=== PATIENT | female | born 1960 | race Caucasian/White ===

== ENCOUNTER 2018-08-08 11:25 | Outpatient (CLI) | payer MEDICAID, SELFPAY ==
[2018-08-08 12:32] LABS: Hemoglobin A1C 7.1 % (4.5-6.2)
[2018-08-08 12:39] LABS: COMMENT (LAB VIEW ONLY) 207.99 mg/dL; Microalb ug/mg Crea 25.8 ug/mg Cr
[2018-08-08 13:28] LABS: ALT 75 U/L (12-78); Cholesterol 333 mg/dL (50-200); HDL Cholesterol 47 mg/dL (40-60); LDL CHOLESTEROL 243 mg/dL (<100); Triglyceride 248 mg/dL (30-150)
== END 2018-08-08 11:45 ==
PROVIDERS: PCP Family Medicine; Visit Provider Family Medicine
DX: E11.9 Type 2 diabetes mellitus without complications (principal); I10 Essential (primary) hypertension; E78.5 Hyperlipidemia, unspecified
CPT/HCPCS: 36415; 80061; 83721; 82043; 82570; 83036; 84460

== ENCOUNTER 2018-09-19 01:13 | Outpatient (CLI) | payer MEDICAID, SELFPAY ==
--- NOTE | 2018-09-19 08:30 | DI.MAMMO_ITS ---
SYMPTOMS/DIAGNOSIS: SCREENING, Z12.31 MAMMOGRAM: Mammograms were interpreted according to the usual protocol including computer analysis with CAD system, tomosynthesis and C view imaging. The breasts are of moderate density with fairly symmetrical distribution of fibroglandular tissue. No dominant mass or clumped microcalcification is identified in either breast. Current examination is compared with the previous examinations including October 2016 and there has been no gross interval change in appearance in comparison with the previous studies. CONCLUSION: No specific evidence of malignancy at this time. Routine screening examinations are suggested at yearly intervals in this age group according to the ACS/ACR guidelines. Category 1, breast density category B. MQSA ASSESSMENT OF FINDINGS: Negative. Category 1. Patient will receive a letter notifying them of these results. BI-RADS category B. There are scattered areas of fibroglandular density.
== END 2018-09-19 01:33 ==
PROVIDERS: PCP Family Medicine; Visit Provider Obstetrics & Gynecology Gynecology
DX: Z12.31 Encounter for screening mammogram for malignant neoplasm of breast (principal)
CPT/HCPCS: 77063; 77067

== ENCOUNTER 2018-09-19 11:10 | Outpatient (REF) | payer MEDICAID, SELFPAY ==
--- NOTE | 2018-09-19 09:40 | ENDOMET_PTH ---
PATIENT: Marcia Nicholas LOC: [facility] U#:[id number] AGE/SX: 58/F ROOM: RE09/19/[address]: Dilma Hanson : 1960 BED: DIS: 09/19/2018 SPEC #: [id number] RECD: 09/19/18 12:48 STATUS: ORLIN REQ #: [id number] MANSOOR: 09/19/18 09:[address]: Dilma Hanson DEPT: Surgical Specimen RECD BY: Rosetta Garza ENTERED: 09/19/18 12:48 SP TYPE: Endomet OTHR DR: Perry Burrell MD Tissues: 1 - ENDOMETRIUM BX/CURRETTE Procedures: GROSS AND MICRO LEVEL 4 Comments: [id number]
== END 2018-09-19 11:30 ==
LOC: LBN 11:10
PROVIDERS: PCP Family Medicine; Visit Provider Obstetrics & Gynecology Gynecology
DX: N85.00 Endometrial hyperplasia, unspecified (principal); N85.8 Other specified noninflammatory disorders of uterus; Z97.5 Presence of (intrauterine) contraceptive device
CPT/HCPCS: 88305

== ENCOUNTER 2018-11-07 10:39 | Outpatient (CLI) | payer MEDICAID, SELFPAY ==
[2018-11-07 11:06] LABS: HGB 13.9 g/dL (12.0-15.5); Mean Corp. HGB Concentration 33.9 g/dL (32.0-36.0); Mean Corpuscular Hemoglobin 32.5 pg (27.0-33.0); Mean Corpuscular Volume 95.8 fL (80-95); Mean Platelet Volume 10.2 fL (8.0-11.0); Platelet Count 275 x1000/uL (130-400); RBC 4.28 m/cumm (4.00-5.20); RBC Distribution Width 12.9 % (11.7-14.6); White Blood Cell Count 6.49 k/cumm (4.4-10.8)
[2018-11-07 13:13] LABS: ALT 56 U/L (12-78); AST 23 U/L (15-37); Alkaline Phosphatase 81 U/L (46-116); Anion Gap 11.8 mmol/L (3-11); BUN 13 mg/dL (7-18); Bilirubin, Total 0.6 mg/dL (0.2-1.0); CO2 27.2 mmol/L (21.0-32.0); CREATININE 0.82 mg/dL (0.55-1.02); Calcium 10.1 mg/dL (8.5-10.1); Chloride 102 mmol/L (98-107); Cholesterol 243 mg/dL (50-200); Glucose 138 mg/dL (70-100); HDL Cholesterol 51 mg/dL (40-60); LDL CHOLESTEROL 160 mg/dL (<100); Potassium 4.4 mmol/L (3.5-5.1); Sodium 141 mmol/L (136-145); Total Protein 7.6 g/dL (6.4-8.2); Triglyceride 171 mg/dL (30-150)
[2018-11-07 14:15] LABS: Hemoglobin A1C 7.4 % (4.5-6.2)
== END 2018-11-07 10:59 ==
PROVIDERS: PCP Family Medicine; Visit Provider Family Medicine
DX: E11.69 Type 2 diabetes mellitus with other specified complication (principal); E78.5 Hyperlipidemia, unspecified; E66.9 Obesity, unspecified
CPT/HCPCS: 36415; 80053; 80061; 83721; 85027; 83036

== ENCOUNTER 2019-03-13 10:57 | Outpatient (CLI) | payer MEDICAID, SELFPAY ==
[2019-03-13 12:00] LABS: Hemoglobin A1C 7.2 % (4.5-6.2)
[2019-03-13 12:46] LABS: ALT 46 U/L (12-78); AST 17 U/L (15-37); Alkaline Phosphatase 89 U/L (46-116); Anion Gap 12.2 mmol/L (3-11); BUN 14 mg/dL (7-18); Bilirubin, Total 0.6 mg/dL (0.2-1.0); CO2 26.8 mmol/L (21.0-32.0); CREATININE 0.78 mg/dL (0.55-1.02); Calcium 9.6 mg/dL (8.5-10.1); Chloride 102 mmol/L (98-107); Cholesterol 239 mg/dL (50-200); Glucose 126 mg/dL (70-100); HDL Cholesterol 49 mg/dL (40-60); LDL CHOLESTEROL 157 mg/dL (<100); Potassium 4.4 mmol/L (3.5-5.1); Sodium 141 mmol/L (136-145); Total Protein 7.6 g/dL (6.4-8.2); Triglyceride 155 mg/dL (30-150)
== END 2019-03-13 11:17 ==
PROVIDERS: PCP Family Medicine; Visit Provider Family Medicine
DX: E11.9 Type 2 diabetes mellitus without complications (principal); E78.5 Hyperlipidemia, unspecified; Z00.00 Encounter for general adult medical examination without abnormal findings
CPT/HCPCS: 36415; 80053; 80061; 83721; 83036

== ENCOUNTER 2019-04-25 00:35 | Outpatient (CLI) | payer MEDICAID, SELFPAY ==
--- NOTE | 2019-04-25 07:30 | MERGE_ITS ---
*[facility]* *[facility]* [address] [place] [address] Date of study: 04/25/2019 Transthoracic Echocardiography M-mode, complete 2D, complete spectral Doppler, and color Doppler *STUDY CONCLUSIONS* Summary: 1. Left ventricle: The cavity size was normal. There was mild to moderate concentric hypertrophy. Systolic function was normal. The estimated ejection fraction was 60-65%. Wall motion was normal; there were no regional wall motion abnormalities. 2. Aortic valve: Sclerosis without stenosis. 3. Left atrium: The atrium was mildly dilated. 4. Right ventricle: The cavity size was normal. Wall thickness was normal. Systolic function was normal. 5. Pulmonic valve: Peak gradient (S): 4.7mm Hg. *PATIENT PRESENTATION* Height: 165.1cm ((65in) ) S/D Pressure: 117 / 71 Weight: 108.9kg ((239.5lb) ) BSA: 2.29m^2 Test start time: 07:40 AM. Test stop time: 08:40 AM. PERFORMING Unknown PERFORMING [facility] [employer]PER[employer] ASSISTANT RT Mio (Steve)(CT), CS ORDERING Perry Burrell REFERRING Perry Burrell *PROCEDURE DATA* Procedure information: The patient was identified by two identifiers. This study was interpreted by [facility]. Pertinent images and digital data are archived for permanent storage and are available for subsequent review. Comparison was made to the study of 06/06/2012. Study status: Routine. Transthoracic echocardiography. M-mode, complete 2D, complete spectral Doppler, and color Doppler. A Transthoracic Echocardiogram was performed. Scanning was performed from the parasternal, apical, subcostal, and suprasternal notch acoustic windows. Images were obtained using an [id number] cardiac ultrasound machine. Image quality was adequate. Study completion: The patient tolerated the procedure well. There were no complications. History: PMH: Pedal edema, DM, HTN, hyperlipidemia, r60.0, E11.9, e78.5. *CARDIAC ANATOMY* Left ventricle: The cavity size was normal. There was mild to moderate concentric hypertrophy. Systolic function was normal. The estimated ejection fraction was 60-65%. Wall motion was normal; there were no regional wall motion abnormalities. Diastolic parameters were normal. Aortic valve: Trileaflet. Sclerosis without stenosis. Mobility was not restricted. Doppler: Transvalvular velocity was within the normal range. There was no stenosis. There was no significant regurgitation. VTI ratio of LVOT to aortic valve: 0.61. Valve area (VTI): 1.9cm^2. Indexed valve area (VTI): 0.8cm^2/m^2. Peak velocity ratio of LVOT to aortic valve: 0.59. Valve area (Vmax): 1.9cm^2. Indexed valve area (Vmax): 0.8cm^2/m^2. Mean velocity ratio of LVOT to aortic valve: 0.62. Valve area (Vmean): 2cm^2. Indexed valve area (Vmean): 0.9cm^2/m^2. Mean gradient (S): 9.5mm Hg. Peak gradient (S): 16.5mm Hg. Aorta: Aortic root: The aortic root was normal in size. Ascending aorta: The ascending aorta was normal in size. Mitral valve: Mildly thickened leaflets. Mobility was not restricted. Doppler: Transvalvular velocity was within the normal range. There was no evidence for stenosis. There was trivial regurgitation. Valve area by pressure half-time: 4.5cm^2. Indexed valve area by pressure half-time: 2cm^2/m^2. Peak gradient (D): 3.4mm Hg. Left atrium: The atrium was mildly dilated. Right ventricle: The cavity size was normal. Wall thickness was normal. Systolic function was normal. Pulmonic valve: The pulmonary valve appears to be grossly normal. Doppler: Transvalvular velocity was within the normal range. There was no evidence for stenosis. There was no significant regurgitation. Peak gradient (S): 4.7mm Hg. Tricuspid valve: Structurally normal valve. Doppler: Transvalvular velocity was within the normal range. There was no evidence for stenosis. There was no significant regurgitation. Pulmonary artery: Systolic pressure could not be accurately estimated. Right atrium: The atrium was normal in size. Pericardium: There was no pericardial effusion. Systemic veins: Inferior vena cava: Well visualized. The vessel was patent and normal in size. The respirophasic diameter changes were in the normal range (greater than or equal to 50%). Baseline ECG: Normal sinus rhythm. Measurements Left ventricle Value Reference LV ID, ED, PLAX 5.1 cm 3.5 - 6.0 LV ID, ES, PLAX 3.1 cm 2.1 - 4.0 LV PW thickness, ED, PLAX 1.2 cm LV end-diastolic volume, 1-p A2C 76 ml LV ejection fraction, 1-p A2C 76 % LV end-diastolic volume, 1-p A4C 76 ml LV ejection fraction, 1-p A4C 61 % LV e', lateral 0.097 m/sec LV E/e', lateral 10 LV e', medial 0.079 m/sec LV E/e', medial 12 LV e', average 0.088 m/sec LV E/e', average 11 Ventricular septum Value Reference IVS thickness, ED, PLAX 1.3 cm LVOT Value Reference LVOT ID, A-P 2.0 cm LVOT area 3.2 cm^2 LVOT peak velocity, S 1.2 m/sec LVOT mean velocity, S 0.91 m/sec LVOT VTI, S 27.4 cm LVOT peak gradient, S 5.8 mm Hg LVOT mean gradient, S 3.6 mm Hg Stroke volume (SV), LVOT DP 87 ml Stroke index (SV/bsa), LVOT DP 38 ml/m^2 Aortic valve Value Reference Aortic valve peak velocity, S 2 m/sec Aortic valve mean velocity, S 1.47 m/sec Aortic valve VTI, S 45.0 cm Aortic mean gradient, S 9.5 mm Hg Aortic peak gradient, S 16.5 mm Hg VTI ratio, LVOT/AV 0.61 Aortic valve area, VTI 1.9 cm^2 Velocity ratio, peak, LVOT/AV 0.59 Aortic valve area, peak velocity 1.9 cm^2 Velocity ratio, mean, LVOT/AV 0.62 Aortic valve area, mean velocity 2 cm^2 Aortic valve area/bsa, mean velocity 0.9 cm^2/m^2 Aorta Value Reference Aortic root ID, ED 3.1 cm Ascending aorta ID, A-P, S 3.4 cm Left atrium Value Reference LA ID, A-P, ES 4.6 cm LA ID/bsa, A-P 2.0 cm/m^2 <=2.2 LA area, ES, A4C (H) 24.1 cm^2 8.8 - 23.4 LA area, ES, A2C 20 cm^2 LA volume/bsa, ES, 1-p A4C 41 ml/m^2 LA volume, ES, 2-p 68 ml LA volume/bsa, ES, 2-p 30 ml/m^2 LA/aortic root ratio 1.48 Mitral valve Value Reference Mitral E-wave peak velocity 0.93 m/sec Mitral A-wave peak velocity 1.1 m/sec Mitral deceleration time 167 ms 150 - 230 Mitral pressure half-time 49 ms Mitral peak gradient, D 3.4 mm Hg Mitral E/A ratio, peak 0.85 Mitral valve area, PHT, DP 4.5 cm^2 Pulmonary veins Value Reference Pulmonary vein peak velocity, S 0.59 m/sec Pulmonary vein peak velocity, D 0.48 m/sec Pulmonary vein velocity ratio, peak, 1.22 S/D Pulmonary vein A-wave reversal peak 0.36 m/sec velocity Pulmonary vein A-wave reversal 108 ms duration Tricuspid valve Value Reference Tricuspid regurg peak velocity 2.2 m/sec Tricuspid peak RV-RA gradient 20.2 mm Hg Right atrium Value Reference RA area, ES, A4C (H) 19.8 cm^2 8.3 - 19.5 Pulmonic valve Value Reference Pulmonic peak gradient, S 4.7 mm Hg Legend: (L) and (H) joni values outside specified reference range. I have personally reviewed the images and have reviewed and edited the reported findings. Electronically signed by Justin Meléndez 04/25/2019 09:12
== END 2019-04-25 00:55 ==
PROVIDERS: PCP Family Medicine; Visit Provider Family Medicine
DX: E11.9 Type 2 diabetes mellitus without complications (principal); E78.5 Hyperlipidemia, unspecified; R60.0 Localized edema; I10 Essential (primary) hypertension; I35.8 Other nonrheumatic aortic valve disorders
CPT/HCPCS: 93306

== ENCOUNTER 2019-05-22 13:35 | Outpatient (CLI) | payer MEDICAID, SELFPAY ==
[2019-05-22 14:58] LABS: Anion Gap 11.2 mmol/L (3-11); BUN 11 mg/dL (7-18); CO2 26.8 mmol/L (21.0-32.0); CREATININE 0.67 mg/dL (0.55-1.02); Calcium 9.5 mg/dL (8.5-10.1); Chloride 103 mmol/L (98-107); Glucose 124 mg/dL (70-100); Potassium 3.7 mmol/L (3.5-5.1); Sodium 141 mmol/L (136-145)
== END 2019-05-22 13:55 ==
PROVIDERS: PCP Family Medicine; Visit Provider Family Medicine
DX: E11.9 Type 2 diabetes mellitus without complications (principal)
CPT/HCPCS: 36415; 80048

== ENCOUNTER 2019-11-01 12:59 | Outpatient (CLI) | payer MEDICAID, SELFPAY ==
[2019-11-01 13:59] LABS: Hemoglobin A1C 6.8 % (3.8-5.6)
[2019-11-01 14:25] LABS: ALT 53 U/L (14-59); AST 17 U/L (15-37); Alkaline Phosphatase 86 U/L (46-116); Anion Gap 12.2 mmol/L (3-11); BUN 11 mg/dL (7-18); Bilirubin, Total 0.5 mg/dL (0.2-1.0); CO2 28.8 mmol/L (21.0-32.0); CREATININE 0.76 mg/dL (0.55-1.02); Calcium 9.5 mg/dL (8.5-10.1); Calculated LDL 148 mg/dL; Chloride 102 mmol/L (98-107); Cholesterol 225 mg/dL (<200); Glucose 117 mg/dL (74-106); HDL Cholesterol 59 mg/dL (40-60); Potassium 4.3 mmol/L (3.5-5.1); Sodium 143 mmol/L (136-145); Total Protein 7.4 g/dL (6.4-8.2); Triglyceride 91 mg/dL (<150)
== END 2019-11-01 13:19 ==
PROVIDERS: PCP Family Medicine; Visit Provider Family Medicine
DX: E78.5 Hyperlipidemia, unspecified (principal); E11.9 Type 2 diabetes mellitus without complications
CPT/HCPCS: 36415; 80053; 80061; 83036

== ENCOUNTER 2020-04-08 03:42 | Outpatient (CLI) | payer MEDICAID, SELFPAY ==
[2020-04-08 10:23] LABS: Hemoglobin A1C 6.6 % (3.8-5.6)
[2020-04-08 10:39] LABS: COMMENT (LAB VIEW ONLY) 20.03 mg/dL
[2020-04-08 10:47] LABS: Microalb ug/mg Crea 330.5 ug/mg Cr
[2020-04-08 11:29] LABS: Calculated LDL 148 mg/dL (<100); Cholesterol 233 mg/dL (<200); HDL Cholesterol 59 mg/dL (40-60); Triglyceride 130 mg/dL (<150); Vitamin B12 282 pg/mL (193-986)
== END 2020-04-08 04:02 ==
PROVIDERS: PCP Family Medicine; Visit Provider Family Medicine
DX: E11.9 Type 2 diabetes mellitus without complications (principal); E78.5 Hyperlipidemia, unspecified
CPT/HCPCS: 36415; 80061; 82043; 82570; 82607; 83036

== ENCOUNTER 2020-05-13 03:47 | Outpatient (CLI) | payer MEDICAID, SELFPAY ==
[2020-05-13 10:47] LABS: Anion Gap 11.1 mmol/L (3-11); BUN 13 mg/dL (7-18); CO2 27.9 mmol/L (21.0-32.0); CREATININE 0.88 mg/dL (0.55-1.02); Calcium 9.6 mg/dL (8.5-10.1); Chloride 102 mmol/L (98-107); Glucose 141 mg/dL (74-106); Potassium 4.2 mmol/L (3.5-5.1); Sodium 141 mmol/L (136-145)
== END 2020-05-13 04:07 ==
PROVIDERS: PCP Family Medicine; Visit Provider Family Medicine
DX: E11.9 Type 2 diabetes mellitus without complications (principal)
CPT/HCPCS: 36415; 80048

== ENCOUNTER 2020-05-20 09:38 | Outpatient (REF) | payer MEDICAID, SELFPAY ==
--- NOTE | 2020-05-20 09:00 | ENDOMET_PTH ---
PATIENT: Marcia Nicholas LOC: N U#:[id number] AGE/SX: 60/F ROOM: RE05/20/[address]: Dilma Hanson : 1960 BED: DIS: 05/20/2020 SPEC #: [id number] RECD: 05/20/20 12:14 STATUS: ORLIN REQ #: [id number] MANSOOR: 05/20/20 09:[address]: Dilma Hanson DEPT: Surgical Specimen RECD BY: Riaz Garcia ENTERED: 05/20/20 12:14 SP TYPE: Endomet OTHR DR: Perry Burrell MD Tissues: 1 - ENDOMETRIUM BX/CURRETTE Procedures: GROSS AND MICRO LEVEL 4 Comments: [id number]
== END 2020-05-20 09:58 ==
LOC: LBN 09:38
PROVIDERS: PCP Family Medicine; Visit Provider Obstetrics & Gynecology Gynecology
DX: N85.00 Endometrial hyperplasia, unspecified (principal); Z97.5 Presence of (intrauterine) contraceptive device
CPT/HCPCS: 88305

== ENCOUNTER 2020-07-08 04:29 | Outpatient (CLI) | payer MEDICAID, SELFPAY ==
[2020-07-08 10:11] LABS: Hemoglobin A1C 6.4 % (<5.7)
[2020-07-08 11:02] LABS: ALT 46 U/L (14-59); AST 18 U/L (15-37); Alkaline Phosphatase 80 U/L (46-116); Anion Gap 10.7 mmol/L (3-11); BUN 14 mg/dL (7-18); Bilirubin, Total 0.5 mg/dL (0.2-1.0); CO2 28.3 mmol/L (21.0-32.0); CREATININE 0.78 mg/dL (0.55-1.02); Calcium 9.7 mg/dL (8.5-10.1); Calculated LDL 156 mg/dL (<100); Chloride 100 mmol/L (98-107); Cholesterol 230 mg/dL (<200); Glucose 130 mg/dL (74-106); HDL Cholesterol 55 mg/dL (40-60); Magnesium 1.7 mg/dL (1.8-2.4); Potassium 4.1 mmol/L (3.5-5.1); Sodium 139 mmol/L (136-145); Total Protein 7.3 g/dL (6.4-8.2); Triglyceride 97 mg/dL (<150)
== END 2020-07-08 04:49 ==
PROVIDERS: PCP Family Medicine; Visit Provider Family Medicine
DX: E11.9 Type 2 diabetes mellitus without complications (principal); I10 Essential (primary) hypertension; E78.5 Hyperlipidemia, unspecified
CPT/HCPCS: 36415; 80053; 80061; 83036; 83735

== ENCOUNTER 2021-01-02 02:08 | Outpatient (CLI) | payer MEDICAID, SELFPAY ==
[2021-01-02 12:49] LABS: Calculated LDL 146 mg/dL (<100); Cholesterol 231 mg/dL (<200); HDL Cholesterol 59 mg/dL (40-60); Triglyceride 131 mg/dL (<150)
== END 2021-01-02 02:09 | disposition home or self-care (01) ==
LOC: LOS 02:08
PROVIDERS: PCP Family Medicine; Visit Provider Family Medicine
DX: E11.9 Type 2 diabetes mellitus without complications (principal); E78.5 Hyperlipidemia, unspecified
CPT/HCPCS: 36415; 80061; 83036

== ENCOUNTER 2021-01-21 01:31 | Outpatient (CLI) | payer MEDICAID, SELFPAY ==
--- NOTE | 2021-01-21 11:48 | DI.MAMMO_ITS ---
EXAM: MG MAMMO SCREENING CLINICAL HISTORY: screening. TECHNIQUE: Bilateral full field digital CC and MLO mammographic images were obtained with 3D tomosyn thesis and utilizing computer aided detection (CAD). COMPARISON: Prior mammograms dating back to 2010, the most recent being August 2018. FINDINGS: No new significant radiograph findings in left breast. Additional benign-appearing microcalcificatio n left breast is noted. The opposite-right breast there is group microcalcifications located laterally somewhat increased fro m previous. Spot Mag views recommended. No new spiculated masses. There is no significant architectural distortion nor skin thickening-retraction. IMPRESSION: No radiographic evidence of malignancy in left breast. Right breast microcalcification group located laterally. Mag views recommended including Mag CC view and Mag straight lateral view. BI-RADS Category 0 - Assessment Incomplete: Need additional imaging evaluation Breast Density - Category B - Scattered areas of fibroglandular density Breast density Category C or D implies that the patient has dense breast tissue. Dense breast tissue can make it harder to find cancer on a mammogram. Dense breast tissue is also associated with an incr eased risk of breast cancer. This information about the result of the mammogram report was provided to the patient to raise their awareness. Use this report when you speak with the patient about their risks for breast cancer, which includes their family history. At that time, you may recommend additional screening tests (Ultrasoun d or MRI) as these tests may add significant information. A negative radiographic report should not delay biopsy if a dominant or clinically suspicious mass is present. Up to ten percent of cancers are not identified on mammography. A negative report may reinforce clinical impression. Adenosis and dense breasts may obscure an underlying neoplasm. False positive reports average 6 to 10%. Patient will receive a letter notifying them of these results.
== END 2021-01-21 01:51 ==
PROVIDERS: PCP Family Medicine; Visit Provider Obstetrics & Gynecology Gynecology
DX: Z12.31 Encounter for screening mammogram for malignant neoplasm of breast (principal); R92.8 Other abnormal and inconclusive findings on diagnostic imaging of breast
CPT/HCPCS: 77063; 77067

== ENCOUNTER 2021-01-28 01:25 | Outpatient (CLI) | payer MEDICAID, SELFPAY ==
--- NOTE | 2021-01-28 11:00 | DI.MAMMO_ITS ---
EXAM: MG MAMMO SCREEN CALL BACK UNI CLINICAL HISTORY: F/U MAMMO, RT BREAST MICROCALCIFICATIONS. TECHNIQUE: 2D spot compression views of the microcalcifications posteriorly in the right breast perf ormed. COMPARISON: Prior mammograms dating back to 2010, the most recent being 01/21/2021. FINDINGS: Microcalcifications exhibit mild pleomorphism. Therefore suspicious. No obvious associated mass. R ecommend stereotactic biopsy IMPRESSION: Suspicious microcalcifications posteriorly in the right breast. Stereotactic biopsy is recommended. Findings and recommendations were discussed by myself with the patient today. Report and recommendations also called by myself to [facility] following this mammog juan today. BI-RADS Category 4 - Suspicious Abnormality: Biopsy should be considered Breast Density - Category B - Scattered areas of fibroglandular density Breast density Category C or D implies that the patient has dense breast tissue. Dense breast tissue can make it harder to find cancer on a mammogram. Dense breast tissue is also associated with an incr eased risk of breast cancer. This information about the result of the mammogram report was provided to the patient to raise their awareness. Use this report when you speak with the patient about their risks for breast cancer, which includes their family history. At that time, you may recommend additional screening tests (Ultrasoun d or MRI) as these tests may add significant information. A negative radiographic report should not delay biopsy if a dominant or clinically suspicious mass is present. Up to ten percent of cancers are not identified on mammography. A negative report may reinforce clinical impression. Adenosis and dense breasts may obscure an underlying neoplasm. False positive reports average 6 to 10%. Patient will receive a letter notifying them of these results.
== END 2021-01-28 01:45 ==
PROVIDERS: PCP Family Medicine; Visit Provider Obstetrics & Gynecology Gynecology
DX: Z12.31 Encounter for screening mammogram for malignant neoplasm of breast (principal); R92.8 Other abnormal and inconclusive findings on diagnostic imaging of breast; R92.0 Mammographic microcalcification found on diagnostic imaging of breast
CPT/HCPCS: 77063; 77067

== ENCOUNTER 2021-04-15 19:30 | Emergency (ER) | payer MEDICAID, SELFPAY ==
[2021-04-15 19:36] VITALS: BP 178/78; PULSE 97; RESP 16; TEMP 36.8; O2SAT 99
[2021-04-15 20:08] LABS: Abs Immature Grans 0.01 10^3/uL (0.0-0.06); Absolute Basophil Count 0.03 10^3/uL (0.0-0.2); Absolute Eosinophil Count 0.13 10^3/uL (0.0-0.7); Absolute Lymphocyte Count 2.56 10^3/uL (1.2-3.4); Absolute Monocyte Count 0.72 10^3/uL (0.1-0.8); Absolute Neutrophil Count 3.76 10^3/uL (1.2-6.7); Basophils % 0.4; Eosinophils % 1.8; HCT 37.5 % (36.0-46.0); HGB 12.5 g/dL (11.2-15.7); Immature Grans % 0.1; Lymphocytes % 35.5; MCHC 33.3 % (32.0-36.0); MCV 95.9 fL (80-95); MPV 9.8 fL (8.0-11.0); Neutrophils % 52.2; Nucleated RBC 0 %; Platelet Count 305 10^3/uL (130-400); RBC 3.91 10^6/uL (3.93-5.22); RDW 13.6 % (11.7-14.6); RDW-SD 47.8 fL; WBC 7.21 10^3/uL (4.4-10.8)
--- NOTE | 2021-04-15 20:10 | W.ED.GENAD ---
Discharge Plan Disposition Patient Disposition: HOME Condition: Improving Discharge Details Clinical Impression: Abnormal uterine bleeding Primary Care Provider: Christopher Mcclain ED Provider: oLri Ha Home Meds and New Rx's Prescriptions: Continued (DME) lancets [FreeStyle Lancets] 28 gauge misc See Dose Instructions .ROUTE .MEDSUPPLY Qty: 100 RF: 11 valsartan 160 mg tablet 160 mg PO DAILY Qty: 90 RF: 3 atorvastatin 80 mg tablet 80 mg PO QHS Qty: 90 RF: 3 metoprolol succinate 100 mg tablet extended release 24 hr 100 mg PO DAILY Qty: 90 RF: 4 magnesium 250 mg tablet 250 mg PO DAILY Qty: 90 RF: 3 cholecalciferol (vitamin D3) [Vitamin D3] 1,000 unit capsule 4,000 unit PO DAILY RF: 0 furosemide 20 mg tablet 20 mg PO DAILY Qty: 90 RF: 3 Januvia 100 mg tablet 100 mg PO DAILY Qty: 90 RF: 3 metformin 500 mg tablet 1,000 mg PO BID Qty: 360 RF: 3 (DME) blood-glucose meter [FreeStyle Lite Meter] Kit See Dose Instructions .ROUTE .MEDSUPPLY Qty: 1 RF: 0 amlodipine 5 mg tablet 7.5 mg PO DAILY Qty: 135 RF: 4 (DME) FreeStyle Test Strip See Dose Instructions .ROUTE .MEDSUPPLY Qty: 100 RF: 11 medroxyprogesterone [Provera] 5 mg tablet 5 mg PO DAILY Qty: 30 RF: 2 milk thistle 175 mg Capsule 175 mg PO DAILY RF: 0 Discharge Instructions Instructions: Abnormal (Dysfunctional) Uterine Bleeding (ED) Additional Instructions: Take the progesterone prescription sent to your pharmacy by Dr. Hanson as directed. Call the gynecology office tomorrow to schedule a follow-up appointment as recommended by Dr. Hanson. Return immediately to the emergency department if you develop any worsening or new concerning symptoms such as difficulty breathing, chest pain or dizziness. Referrals: Dilma Hanson MD [ [facility] STAFF PHYSICIAN] - Discharge Data Discharge Date/Time-TO BE ENTERED AT DEPARTURE: 04/15/21 21:55 Discharge Physician: Lori Ha Medical Decision Making 61-year-old postmenopausal female with a history of dysfunctional uterine bleeding and uterine fibroids for several years presents for worsening vaginal bleeding today at home. She describes large amounts of bleeding in the toilet and on pads today. She denies any fever, chest pain, shortness of breath, dizziness or abdominal pain. She appears comfortable and nontoxic. Her vitals are within normal limits. Abdomen is soft and nontender. Speculum exam noted large amount of maroon blood with 3-4 large maroon clots. Normal bimanual exam. Normal hemoglobin and hematocrit. Normal coagulation studies. Case discussed with Dr. Hanson who evaluated patient at bedside. Patient is cleared for discharge to home. A prescription for progesterone will be sent electronically to her pharmacy per Dr. Hanson. Plan is for patient to follow-up with gynecology outpatient for likely plan for D&C. Patient was comfortable with plan for home. Usual and customary return precautions given prior to discharge. Medical Records Medical records reviewed: Yes I reviewed the patient's medical records. Lab Data Lab results reviewed: Yes I reviewed the patient's lab results. Labs: Laboratory Tests Range/Units 04/15/21 04/15/21 04/15/21 19:46 19:46 20:00 WBC (4.4-10.8) 10^3/uL 7.21 RBC (3.93-5.22) 10^6/uL 3.91 L Hgb (11.2-15.7) g/dL 12.5 Hct (36.0-46.0) % 37.5 MCV (80-95) fL 95.9 H MCH (27.0-33.0) pg 32.0 MCHC (32.0-36.0) % 33.3 RDW (11.7-14.6) % 13.6 Plt Count (130-400) 10^3/uL 305 MPV (8.0-11.0) fL 9.8 Immature Gran % 0.1 Neutrophils % 52.2 Lymphocytes % 35.5 Monocytes % 10.0 Eosinophils % 1.8 Basophils % 0.4 Nucleated RBC % % 0 Absolute Neutrophils (1.2-6.7) 10^3/uL 3.76 Absolute Lymphocytes (1.2-3.4) 10^3/uL 2.56 Absolute Monocytes (0.1-0.8) 10^3/uL 0.72 Absolute Eosinophils (0.0-0.7) 10^3/uL 0.13 Absolute Basophils (0.0-0.2) 10^3/uL 0.03 PT (9.3-11.0) sec 10.3 INR (0.9-1.1) 1.0 APTT (21.0-27.5) sec 22.3 Sodium (136-145) mmol/L 143 Potassium (3.5-5.1) mmol/L 3.4 L Chloride (98-107) mmol/L 103 Carbon Dioxide (21.0-32.0) mmol/L 25.9 Anion Gap (3-11) mmol/L 14.1 H BUN (7-18) mg/dL 10 Creatinine (0.55-1.02) mg/dL 0.8 Estimated GFR/1.73 m2 (mL/min/1.73m2) >= 60.00 Glucose (74-106) mg/dL 117 H Calcium (8.5-10.1) mg/dL 9.6 Total Bilirubin (0.2-1.0) mg/dL 0.4 AST (15-37) U/L 16 ALT (14-59) U/L 41 Alkaline Phosphatase (46-116) U/L 90 Total Protein (6.4-8.2) g/dL 8.2 Albumin (3.4-5.0) g/dL 4.2 HPI General Mode of arrival: ambulatory. Date/Time Provider Initiated Documentation: 04/15/21 19:41. Limitations to Documentation: no limitations. Information obtained by: patient. HPI Narrative: Patient is a 61-year-old postmenopausal female with a history of hypertension, hyperlipidemia, diabetes, uterine fibroids and dysfunctional uterine bleeding for the past several years that has been followed by Dr. Hanson with plans for a D&C at some point but she states this was placed on hold due to Covid and other medical problems she was dealing with who presents for worsening vaginal bleeding today. Patient states she felt a sudden gush and blood clot and rushed to the toilet and had a large amount of vaginal bleeding. She states she stayed on the toilet for some time and continued to note a large amount of bleeding. She states she then noted a large amount of bleeding on several pads. She denies any fever, chest pain, shortness of breath, dizziness, abdominal pain, nausea, vomiting or urinary symptoms. Related Data Home Medications Medication Instructions Recorded Confirmed lancets 28 gauge #100 each 12/11/18 04/08/21 cholecalciferol (vitamin D3) 25 4,000 unit PO DAILY cap 06/05/19 04/15/21 mcg (1,000 unit) capsule atorvastatin 80 mg tablet 80 mg PO QHS #90 tab 04/22/20 04/15/21 furosemide 20 mg tablet 20 mg PO DAILY #90 tab 06/10/20 04/15/21 valsartan 160 mg tablet 160 mg PO DAILY #90 tab 06/25/20 04/15/21 magnesium 250 mg tablet 250 mg PO DAILY #90 tab 08/05/20 04/15/21 sitagliptin 100 mg tablet 100 mg PO DAILY #90 tab 09/07/20 04/15/21 metformin 500 mg tablet 1,000 mg PO BID #360 tab 09/17/20 04/15/21 amlodipine 5 mg tablet 7.5 mg PO DAILY #135 tab-cap 01/09/21 04/15/21 blood-glucose meter #1 each 01/09/21 04/08/21 blood sugar diagnostic #100 each 01/20/21 04/08/21 metoprolol succinate 100 mg 100 mg PO DAILY #90 tab 04/08/21 04/15/21 tablet,extended release 24 hr medroxyprogesterone 5 mg tablet 5 mg PO DAILY #30 tab 04/15/21 milk thistle 175 mg PO DAILY 04/15/21 04/15/21 Previous Rx's Medication Instructions Recorded lancets 28 gauge #100 each 12/11/18 atorvastatin 80 mg tablet 80 mg PO QHS #90 tab 04/22/20 furosemide 20 mg tablet 20 mg PO DAILY #90 tab 06/10/20 valsartan 160 mg tablet 160 mg PO DAILY #90 tab 06/25/20 magnesium 250 mg tablet 250 mg PO DAILY #90 tab 08/05/20 sitagliptin 100 mg tablet 100 mg PO DAILY #90 tab 09/07/20 metformin 500 mg tablet 1,000 mg PO BID #360 tab 09/17/20 amlodipine 5 mg tablet 7.5 mg PO DAILY #135 tab-cap 01/09/21 blood-glucose meter #1 each 01/09/21 blood sugar diagnostic #100 each 01/20/21 metoprolol succinate 100 mg 100 mg PO DAILY #90 tab 04/08/21 tablet,extended release 24 hr medroxyprogesterone 5 mg tablet 5 mg PO DAILY #30 tab 04/15/21 Allergies Allergy/AdvReac Type Severity Reaction Status Date / Time clindamycin AdvReac Severe GI UPSET Verified 04/15/21 19:42 hydrochlorothiazide AdvReac Intermediate MUSCLE Verified 04/15/21 19:42 ACHES, FATIGUE lisinopril AdvReac Intermediate UNABLE TO Verified 04/15/21 19:42 TOLERATE Penicillins AdvReac Intermediate MOUTH SORES Verified 04/15/21 19:42 erythromycin base AdvReac Mild GI UPSET Verified 04/15/21 19:42 simvastatin AdvReac Unknown MUSCLE Verified 04/15/21 19:42 ACHES CITRONELLA OIL AdvReac Intermediate ILLNESS, Uncoded 04/15/21 19:42 NAUSEA General Stated Complaint: FAST FOOD FRY COOK 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: 3 Review of Systems All systems reviewed & are unremarkable except as noted in HPI and below Constitutional Constitutional: Reports as per HPI, Denies chills and Denies fever(s) Eyes Eyes: Denies blurry vision ENT Ears, Nose, Mouth, and Throat: Denies dizziness, Denies sore throat and Denies throat swelling Cardiovascular Cardiovascular: Denies chest pain and Denies dyspnea Respiratory Respiratory: Denies cough and Denies dyspnea Gastrointestinal Gastrointestinal: Denies abdominal pain, Denies diarrhea and Denies vomiting Genitourinary Genitourinary: Denies hematuria, Denies dysuria and Reports other (Heavy vaginal bleeding) Musculoskeletal Musculoskeletal: Denies back pain and Denies numbness Integumentary/Breasts Skin/Breast: Denies lesions and Denies rash Neurologic Neurologic: Denies dizziness, Denies localized weakness and Denies numbness Allergic/Immunologic Allergic/Immunologic: Denies throat swelling [facility] Medical History Diabetes Hyperlipidemia Hypertension ovarian cysts 2013 5.5cm R ovary 2014 R ovary 3.3cm L ovary 2.8cm. Simple appearing. will repeat u/s in 2016 Pedal edema Postmenopausal bleeding after 3yrs of amenorrhea. EMBx 05/2014 hyperplasia w/o atypia. Rx with MDA for 6mo followed by Mirena. 2016 Repeat EMBx with Mirena in place. B9 inactive endometrium. ES 9mm. 2018. EMBx____ Surgical History Appendectomy (~1980) w/ Dx of mesenteric adenitis section (~1993) for breech Diagnostic Laproscopy (~1975) 1990 ovarian cystectomy. Ligation of fallopian tube Surgeries 1965 eye surgery 1990 - ovarian cystectomy Family History Mother , 87 Diabetes CAD (coronary artery disease) Heart disease Hyperlipidemia Hypertension Father , 83 Diabetes CAD (coronary artery disease) Heart disease Hyperlipidemia Hypertension Sister Essential hypertension Hyperlipidemia Uterine cancer Sister Essential hypertension Sister Essential hypertension Hyperlipidemia Brother Heart disease Hyperlipidemia Hypertension Brother Hypertension Hyperlipidemia Brother Diabetes Heart disease Hypertension Hyperlipidemia Brother Hypertension Hyperlipidemia Maternal Grandfather , 70s Heart disease Paternal Grandfather , 59 Heart disease Brain cancer Maternal Grandmother , 70s Stroke Hypertension Paternal Grandmother , FLU at age 76. No problems noted. Son No problems noted. Daughter No problems noted. Brother Hypertension Social History Smoking/Tobacco Use Status: Former Tobacco Use Quit Date: 10/31/12 Tobacco: How many years used: 35 Second Hand Exposure: Yes Smoking risk assessment performed?: Yes Alcohol Intake: current Alcohol Intake frequency: a few times a week Alcohol type: beer and hard liquor Drug use: Never Caregiver/Support person: No Household members: spouse, family and other Details: 4 Housing: house Communication Needs: None current occupation: RETAIL SELF EMPLOYED Pets and animals: Yes Pets and animals: cat(s) and farm animals Sexually active: No Do you think of yourself as: straight/heterosexual Current gender identity: female What is your relationship status?: How often do you talk on the phone with friends or family?: three or more times per week How often do you get together with friends or relatives?: three or more times per week Do you belong to any clubs or organized social groups?: no Panel score (0-1 are the most socially isolated patients): 2 What type of physical activity do you participate in: none Maddie/Cheondoism: None Seatbelt use: always Drive intox or ride w/intox compactor driver: No Do you feel safe at home: Yes Female Reproductive History Menstrual control method: progestin IUCD Menopause type: natural History History 3 Para Hx # Term Pregnancies 2 Multiple births Hx # Pregnancies Ectopic pregnancies AB induced Hx Number of Living Children AB spontaneous Exam Const General: cooperative and no acute distress Nutritional Appearance: obese morbidly obese [facility] Head: normal to inspection Face and sinus: normal facial exam Eyes General: appearance normal, both eyes and all related structures EOM: EOM intact bilaterally Neck Neck: normal visual inspection and No submandibular swelling Lymphatic: no lymphadenopathy noted Chest Chest: normal inspection of the chest and no tenderness Resp Effort & Inspection: normal respiratory effort and able to speak in complete sentences Auscultation: clear to auscultation bilaterally Cardio Rate: regular rate Rhythm: regular rhythm GI Inspection: normal to inspection and obesity Palpation: soft, not firm, not rigid and nontender Auscultation: normal bowel sounds Speculum Exam - Vagina: vaginal bleeding (large amount of maroon blood with 3-4 large maroon clots) Bimanual Exam- Vagina & Uterus: normal bimanual exam and no cervical motion tenderness Bimanual Exam- Adnexa, other: normal adnexae and no masses OB/External & Speculum: vaginal bleeding (large amount of maroon blood with 3-4 large maroon clots) Skin General skin exam: no rashes or lesions noted Neuro General: patient alert, patient awake and patient oriented x3 Cognition: normal cognition Speech: speech normal Motor: muscle tone normal throughout Sensory Exam: no sensory deficits noted Extrem General: normal to inspection, full ROM, capillary refill normal, no calf tenderness bilaterally and no edema Psych Appearance: grossly normal Mental Status: mental status grossly normal Speech and Movement: speech and movement normal Affect: normal affect Course Vital Signs Vital signs: Vital Signs Temperature 98.2 F 04/15/21 19:36 Pulse 97 H 04/15/21 19:36 Respiratory Rate 16 04/15/21 19:36 Blood Pressure 178/78 H 04/15/21 19:36 Pulse Oximetry 99 04/15/21 19:36 Temperature 98.2 F 04/15/21 19:36 Pulse 97 H 04/15/21 19:36 Respiratory Rate 16 04/15/21 19:36 Respiratory Effort Non-Labored 04/15/21 19:40 Blood Pressure 178/78 H 04/15/21 19:36 Blood Pressure Position Sitting 04/15/21 19:36 Pulse Oximetry 99 04/15/21 19:36 Oxygen Delivery Method Room Air 04/15/21 19:36 Oxygen Flow Rate 0 04/15/21 19:36 Lab/Test Results Lab/Test Results: Laboratory Tests Range/Units 04/15/21 20:00 WBC (4.4-10.8) 10^3/uL 7.21 RBC (3.93-5.22) 10^6/uL 3.91 L Hgb (11.2-15.7) g/dL 12.5 Hct (36.0-46.0) % 37.5 MCV (80-95) fL 95.9 H MCH (27.0-33.0) pg 32.0 MCHC (32.0-36.0) % 33.3 RDW (11.7-14.6) % 13.6 Plt Count (130-400) 10^3/uL 305 MPV (8.0-11.0) fL 9.8 Immature Gran % 0.1 Neutrophils % 52.2 Lymphocytes % 35.5 Monocytes % 10.0 Eosinophils % 1.8 Basophils % 0.4 Nucleated RBC % % 0 Absolute Neutrophils (1.2-6.7) 10^3/uL 3.76 Absolute Lymphocytes (1.2-3.4) 10^3/uL 2.56 Absolute Monocytes (0.1-0.8) 10^3/uL 0.72 Absolute Eosinophils (0.0-0.7) 10^3/uL 0.13 Absolute Basophils (0.0-0.2) 10^3/uL 0.03
[2021-04-15 20:27] LABS: PTT Activated 22.3 sec (21.0-27.5); Prothrombin Time 10.3 sec (9.3-11.0)
[2021-04-15 20:31] LABS: ALT 41 U/L (14-59); AST 16 U/L (15-37); Albumin 4.2 g/dL (3.4-5.0); Alkaline Phosphatase 90 U/L (46-116); Anion Gap 14.1 mmol/L (3-11); BUN 10 mg/dL (7-18); Bilirubin, Total 0.4 mg/dL (0.2-1.0); CO2 25.9 mmol/L (21.0-32.0); CREATININE 0.8 mg/dL (0.55-1.02); Calcium 9.6 mg/dL (8.5-10.1); Chloride 103 mmol/L (98-107); Glucose 117 mg/dL (74-106); Potassium 3.4 mmol/L (3.5-5.1); Sodium 143 mmol/L (136-145); Total Protein 8.2 g/dL (6.4-8.2)
[2021-04-15 21:52] VITALS: BP 137/69; PULSE 76; RESP 16; TEMP 36.7; O2SAT 99
== END 2021-04-15 21:55 | disposition home or self-care (01) ==
PROVIDERS: Emergency Provider Physician Assistant; PCP Nurse Practitioner Family
DX: N93.8 Other specified abnormal uterine and vaginal bleeding (principal)
CPT/HCPCS: 80053; 99283; 85025; 85610; 85730

== ENCOUNTER 2021-05-08 01:35 | Outpatient (CLI) | payer MEDICAID, SELFPAY ==
[2021-05-08 13:40] LABS: HCT 34.7 % (36.0-46.0); HGB 11.4 g/dL (11.2-15.7); MCH 31.8 pg (27.0-33.0); MCHC 32.9 % (32.0-36.0); MCV 96.9 fL (80-95); MPV 9.2 fL (8.0-11.0); Platelet Count 412 10^3/uL (130-400); RBC 3.58 10^6/uL (3.93-5.22); RDW-SD 49.4 fL; WBC 7.54 10^3/uL (4.4-10.8)
[2021-05-08 14:51] LABS: TSH (W/Ref FT4) 1.24 uIU/mL (0.36-3.74)
== END 2021-05-08 01:36 | disposition home or self-care (01) ==
LOC: LBO 01:35
PROVIDERS: PCP Nurse Practitioner Family; Visit Provider Nurse Practitioner Family
DX: R53.83 Other fatigue (principal)
CPT/HCPCS: 36415; 85027; 84443

== ENCOUNTER 2021-05-08 15:15 | Outpatient (REF) | payer MEDICAID, SELFPAY ==
--- NOTE | 2021-05-08 14:15 | ENDOMET_PTH ---
PATIENT: Marcia Nicholas LOC: [facility]#:[id number] AGE/SX: 61/F ROOM: RE05/08/[address]: Dilma Hanson : 1960 BED: DIS: 05/08/2021 SPEC #: [id number] RECD: 05/08/21 16:28 STATUS: ORLIN REQ #: [id number] MANSOOR: 05/08/21 14:[address]: Dilma Hanson DEPT: Surgical Specimen RECD BY: Alma Mario ENTERED: 05/08/21 16:31 SP TYPE: Endomet OTHR DR: Christopher Mcclain, PORTABLE MACHINE SANDER Tissues: 1 - ENDOMETRIUM BX/JANAKETTE Procedures: GROSS AND MICRO LEVEL 4 Comments: [id number]
== END 2021-05-08 15:16 | disposition home or self-care (01) ==
LOC: LBN 15:15
PROVIDERS: PCP Nurse Practitioner Family; Visit Provider Obstetrics & Gynecology Gynecology
DX: N95.0 Postmenopausal bleeding (principal); N85.01 Benign endometrial hyperplasia
CPT/HCPCS: 88305

== ENCOUNTER 2021-06-15 02:42 | Outpatient (CLI) | payer MEDICAID, SELFPAY ==
[2021-06-15 09:12] LABS: HCT 41.1 % (36.0-46.0); HGB 13.5 g/dL (11.2-15.7); MCH 30.5 pg (27.0-33.0); MCHC 32.8 % (32.0-36.0); MCV 92.8 fL (80-95); MPV 9.7 fL (8.0-11.0); Platelet Count 328 10^3/uL (130-400); RBC 4.43 10^6/uL (3.93-5.22); RDW 14.6 % (11.7-14.6); WBC 5.11 10^3/uL (4.4-10.8)
[2021-06-15 10:38] LABS: BUN 4 mg/dL (7-18); CREATININE 0.6 mg/dL (0.55-1.02); Calcium 10.3 mg/dL (8.5-10.1); Chloride 104 mmol/L (98-107); Glucose 112 mg/dL (74-106); Potassium 4.3 mmol/L (3.5-5.1); Sodium 145 mmol/L (136-145)
[2021-06-15 12:50] LABS: Source Nasal/Nares
[2021-06-15 18:38] LABS: COVID-19 PCR Negative (Negative)
== END 2021-06-15 02:43 | disposition home or self-care (01) ==
LOC: LBO 02:42
PROVIDERS: PCP Nurse Practitioner Family; Visit Provider Obstetrics & Gynecology Gynecology
DX: N95.0 Postmenopausal bleeding; D25.1 Intramural leiomyoma of uterus; I10 Essential (primary) hypertension; Z20.822 Contact with and (suspected) exposure to COVID-19; Z01.818 Encounter for other preprocedural examination; Z01.812 Encounter for preprocedural laboratory examination
CPT/HCPCS: 36415; 80048; 85027; 86850; 86900; 86901; 87635

== ENCOUNTER 2021-06-17 13:23 | Observation (INO) | payer MEDICAID, SELFPAY ==
[2021-06-17] VITALS (14 sets, daily range): BP systolic 102–149; BP diastolic 48–80; PULSE 62–75; RESP 12–24; TEMP 36.1–36.7; TEMPC 36.1; O2SAT 92–98; BMI 40.6
[2021-06-17] MEDS: Lactated Ringers 1,000 ML 125 ML IV ×2 (08:31→14:35)
--- NOTE | 2021-06-17 09:33 | W.ANESPRE ---
General Info Date of Service Date Performed: 06/17/21 Height: 5 ft 5 in Weight: 110.6 kg Body Mass Index (BMI): 40.6 Surgical Procedure: Operation Date: 06/17/21 08:40 Proposed Procedures Side Surgeon p Hysterectomy Vaginal Laparoscopic Assist, shannon salpingoopherectomy, bladder cysto Dilma Hanson MD Meds Allergies and Home Medications Allergies Allergy/AdvReac Type Severity Reaction Status Date / Time clindamycin AdvReac Severe GI UPSET Verified 06/17/21 08:13 hydrochlorothiazide AdvReac Intermediate MUSCLE Verified 06/17/21 08:13 ACHES, FATIGUE lisinopril AdvReac Intermediate UNABLE TO Verified 06/17/21 08:13 TOLERATE Penicillins AdvReac Intermediate MOUTH SORES Verified 06/17/21 08:13 erythromycin base AdvReac Mild GI UPSET Verified 06/17/21 08:13 simvastatin AdvReac Unknown MUSCLE Verified 06/17/21 08:13 ACHES CITRONELLA OIL AdvReac Intermediate ILLNESS, Uncoded 06/17/21 08:13 NAUSEA Home Medication Medication Instructions Recorded lancets 28 gauge #100 each 12/11/18 cholecalciferol (vitamin D3) 25 4,000 unit PO DAILY cap 06/05/19 mcg (1,000 unit) capsule furosemide 20 mg tablet 20 mg PO DAILY #90 tab 06/10/20 magnesium 250 mg tablet 250 mg PO DAILY #90 tab 08/05/20 sitagliptin 100 mg tablet 100 mg PO DAILY #90 tab 09/07/20 metformin 500 mg tablet 1,000 mg PO BID #360 tab 09/17/20 blood-glucose meter #1 each 01/09/21 blood sugar diagnostic #100 each 01/20/21 medroxyprogesterone 5 mg tablet 5 mg PO DAILY #30 tab 04/15/21 milk thistle 175 mg PO DAILY 04/15/21 norethindrone acetate 5 mg tablet 5 mg PO .COMPLEX #60 tab 05/29/21 atorvastatin 80 mg tablet 80 mg PO QHS #90 tab 06/11/21 amlodipine 10 mg PO HS 06/16/21 metoprolol succinate 100 mg PO HS 06/16/21 valsartan 320 mg PO HS 06/16/21 Current Visit Medications: Current Medications Generic Name Dose Route Start Last Admin Trade Name Freq PRN Reason Stop Dose Admin Ringer's Solution 1,000 mls @ 125 mls/hr 06/17/21 06:00 06/17/21 08:31 IV 07/16/21 23:59 125 mls/hr INFUSION TIMOTHY Administration Cefazolin Sodium 2,000 mg/ 100 mls @ 200 mls/hr 06/17/21 06:00 Sodium Chloride IVPB 06/17/21 16:00 PREOP TIMOTHY IV Miscellaneous Supplies 1 each 06/17/21 06:00 Iv Access IV 07/16/21 23:59 DIRECTED TIMOTHY Sodium Chloride 0 ml 06/17/21 06:00 Normal Saline Flush 10 Ml Syr IV 07/16/21 23:59 PRN PRN Sodium Chloride 0 ml 06/17/21 06:00 Normal Saline 10 Ml Vial IJ 07/16/21 23:59 DIRECTED PRN Sterile Water 0 ml 06/17/21 06:00 Water,Injection,Sterile 10 Ml Vial IJ 07/16/21 23:59 DIRECTED PRN PFSH Active Problems Active Problems: Problem Status Onset Code Fibroid uterus D25.9 Abnormal uterine bleeding N93.9 Fatigue R53.83 Abnormal mammogram of right breast R92.8 Trigger finger of all digits of right hand M65.321, M65.311, M65.331, M65.341, M65.351 Hypomagnesemia E83.42 Pedal edema R60.0 Cholelithiasis without obstruction K80.20 History of bilateral ligation of fallopian tubes Z98.51 History of section Z98.891 History of eye surgery Z98.890 History of tobacco use Z87.891 Status post appendectomy Z90.49 Status post ovarian cystectomy Z98.890, Z87.42 Postmenopausal bleeding Diabetes Hyperlipidemia Hypertension Simple endometrial hyperplasia without atypia 10/19/16 N85.01 Post-menopausal bleeding 06/19/14 N95.0 Ovarian cyst 06/19/14 N83.209 Non-alcoholic fatty liver disease 09/29/08 K76.0 Hyperlipidemia 01/30/13 E78.5 Essential hypertension 09/04/13 I10 Diabetes mellitus 04/15/15 E11.9 HTN (hypertension) I10 Positive for microalbuminuria R80.9 Hyperlipidemia E78.5 Diabetes mellitus type 2 in obese E11.69, E66.9 Medical History Medical History Diabetes Fibroid uterus Hyperlipidemia Hypertension ovarian cysts 2013 5.5cm R ovary 2015 R ovary 3.3cm L ovary 2.8cm. Simple appearing. will repeat u/s in 2016 Pedal edema Postmenopausal bleeding after 3yrs of amenorrhea. EMBx 05/2014 hyperplasia w/o atypia. Rx with MDA for 6mo followed by Mirena. 2016 Repeat EMBx with Mirena in place. B9 inactive endometrium. ES 9mm. 2018. EMBx____ Surgical History Surgical History Appendectomy (~1980) w/ Dx of mesenteric adenitis section (~1993) for breech Diagnostic Laproscopy (~1975) 1990 ovarian cystectomy. Ligation of fallopian tube Surgeries 1964 eye surgery 1990 - ovarian cystectomy Tobacco Smoking/Tobacco Use Status: Former Tobacco Use Tobacco: How many years used: 35 Passive smoking exposure: Yes Second hand exposure: Yes Alcohol Alcohol Intake: current Alcohol intake frequency: 0-2 drinks per day Alcohol type: beer and hard liquor Substance Use Substance use: Never Substance use type: does not use Prental History History 3 Para Hx # Term Pregnancies 2 Multiple births Hx # Pregnancies Ectopic pregnancies AB induced Hx Number of Living Children AB spontaneous Vital Signs and Lab Results Vital Signs Most Recent Vital Signs in EMR: Most Recent Vital Signs Temp Pulse Resp BP Pulse Ox 36.5 C 74 16 145/77 H 98 06/17/21 08:00 06/17/21 08:00 06/17/21 08:00 06/17/21 08:00 06/17/21 08:00 Point of Care Results Point of Care Results: Finger Stick Blood Glucose 127 06/17/21 08:35 Lab Results Blood Type / Crossmatch: Patient ABO/Rh A Positive 06/15/21 09:03 06/15/21 Antibody Screen NEGATIVE 06/15/21 09:03 06/15/21 Complete Blood Count: White Blood Count 5.11 10^3/uL (4.4-10.8) 06/15/21 09:03 06/15/21 Red Blood Count 4.43 10^6/uL (3.93-5.22) 06/15/21 09:03 06/15/21 Hemoglobin 13.5 g/dL (11.2-15.7) 06/15/21 09:03 06/15/21 Hematocrit 41.1 % (36.0-46.0) 06/15/21 09:03 06/15/21 Platelet Count 328 10^3/uL (130-400) 06/15/21 09:03 06/15/21 Complete Metabolic Panel: Sodium Level 145 mmol/L (136-145) 06/15/21 09:03 06/15/21 Potassium Level 4.3 mmol/L (3.5-5.1) 06/15/21 09:03 06/15/21 Chloride Level 104 mmol/L (98-107) 06/15/21 09:03 06/15/21 Carbon Dioxide Level 24.0 mmol/L (21.0-32.0) 06/15/21 09:03 06/15/21 Blood Urea Nitrogen 4 mg/dL (7-18) L 06/15/21 09:03 06/15/21 Creatinine 0.6 mg/dL (0.55-1.02) 06/15/21 09:03 06/15/21 Estimated GFR/1.73 m2 >= 60.00 (mL/min/1.73m2) 06/15/21 09:03 06/15/21 Calcium Level 10.3 mg/dL (8.5-10.1) H 06/15/21 09:03 06/15/21 Glucose Level 112 mg/dL (74-106) H 06/15/21 09:03 06/15/21 Liver Function Panel: No Data to Display Coagulation Panel: No Data to Display Cardiac Panel: No Data to Display Arterial Blood Gas: No Data to Display Venous Blood Gas: No Data to Display Pancreas Panel: No Data to Display Thyroid Panel: No Data to Display Infectious Disease: Coronavirus (COVID-19)(PCR) Negative (Negative) 06/15/21 09:29 06/15/21 Coronavirus 2019 Source Nasal/Nares 06/15/21 09:29 06/15/21 Blood Cultures: No Data to Display Toxicology Panel: No Data to Display Imaging and Studies Imaging and Studies Echocardiogram Summary: Summary: 1. Left ventricle: The cavity size was normal. There was mild to moderate concentric hypertrophy. Systolic function was normal. The estimated ejection fraction was 60-65%. Wall motion was normal; there were no regional wall motion abnormalities. 2. Aortic valve: Sclerosis without stenosis. 3. Left atrium: The atrium was mildly dilated. 4. Right ventricle: The cavity size was normal. Wall thickness was normal. Systolic function was normal. 5. Pulmonic valve: Peak gradient (S): 4.7mm Hg. Anesthesia Assessment and Plan Anesthesia History Personal History: No History of Anesthesia Complications Family History: No Family History of Anesthesia Complications Exercise Tolerance Exercise Tolerance: Metabolic Equivalents>4 Pertinent Negatives Pertinent Negatives: No Symptoms of GERD, No Major Cardiovascular Symptoms or Complaints, No Major Pulmonary Symptoms or Complaints and No History of CVA/TIA Cardiac & Pulmonary Exam Cardiac Exam: Normal S1/S2 Heart Sounds Pulmonary Exam: Clear Bilateral Breath Sounds Airway Exam Known Difficult Airway: No Mallampati Class: 2 Mouth Opening: Normal (> 3cm) Thyromental Distance: Greater than 3 cm Neck Range of Motion: Full ROM Neck Circumference: Normal Teeth Condition: Normal Dentition ASA Classification ASA Score: ASA 2 Emergency Case?: No NPO Status NPO Status: NPO Clears >2 hours, Solids >8 hours Anesthesia Plan Resuscitation Status: Full Code Anesthesia Technique: General Anesthesia (Narcotic spinal) Airway Planned: Endotracheal Tube Monitors Used: Standard Monitors
[2021-06-17] MEDS: ceFAZolin 2,000 MG in Normal Saline 100 ML 200 MG IVPB (10:30)
[2021-06-17] MEDS: Bupivacaine 0.25% Pres-Free 30 ML VIAL ×2 (11:00→12:55)
--- NOTE | 2021-06-17 11:57 | UTER_PTH ---
PATIENT: Marcia Nicholas LOC: [facility] U#:[id number] AGE/SX: 61/F ROOM: OBS.306 RE06/17/[address]: Dilma Hanson : 1960 BED: A DIS: 06/18/2021 SPEC #: [id number] RECD: 06/17/21 16:26 STATUS: ORLIN RERanjeet #: [id number] MANSOOR: 06/17/21 11:[address]: Dilma Hanson DEPT: Surgical Specimen RECD BY: Rosetta Garza ENTERED: 06/17/21 16:27 SP TYPE: UTER OTHR DR: Christopher Mcclain, CLINICAL TRIALS MANAGER Tissues: 1 - OVARY NOT TUMOR W OR W/O TUBES 2 - UTERUS W OR W/O OVARIES(NOT TUMOR/PROLAPSE) Procedures: GROSS AND MICRO LEVEL 4 GROSS AND MICRO LEVEL 5 Comments: [id number]
--- NOTE | 2021-06-17 13:47 | W.ANESPOSTOP ---
Postoperative Evaluation Date, Time and Location Date Performed: 06/17/21 Time Performed: 13:47 Patient Location: PACU Vital Signs Most Recent Imported Vital Signs: Most Recent Vital Signs Temp Pulse Resp BP Pulse Ox 36.1 C L 65 24 102/48 L 93 06/17/21 13:36 06/17/21 13:36 06/17/21 13:36 06/17/21 13:36 06/17/21 13:36 Most Recent Manually Entered Vital Signs: Adult Blood Pressure: 102/48 Heart Rate: 63 Respirations: 20 Oxygen Saturation (%): 94 Temperature (C): 36.1 C Pain Score (0-10 Scale): 0 Pain Score Most Recent Pain Score: Most Recent Pain Score Pain Level 0 06/17/21 13:36 Assessment Mental Status: Awake (Alert & Oriented to Patient Baseline) Airway and Respiratory Function: Patent airway with normal (patient baseline) respiratory exam Cardiovascular Function: Hemodynamically Stable Hydration Status: Adequately Hydrated Nausea & Vomiting: No Nausea or Vomiting Pain: Pt. Denies Any Pain Peripheral Nerve Block: Other (Spinal resolving appropriately) Teaching Patient Teaching: Advised to seek followup for the following concerns (See explanation) (Patient has 4 points on her STOP-BANG. Reports family can hear here snoring. ) Concerns: Other and Discussed Safe Use of Pain Medication Given Likely or Known JOANNE
--- NOTE | 2021-06-17 14:50 | NUR.NOTE ---
Nursing Note: Pt arrived from PACU via bed at 1440, LR running @ 125 mL/hr IV left hand 20g, pt awake, alert and oriented x3, VSS.
[2021-06-17] MEDS: metFORMIN 500 MG TAB 1000 MG PO (18:29)
[2021-06-17] MEDS: Ketorolac 30 MG/ML VIAL IVP ×2 (18:31→23:58)
[2021-06-17] MEDS: Atorvastatin 40 MG TAB 80 MG PO (21:00)
[2021-06-17] MEDS: Docusate Sodium 100 MG CAP PO (21:06)
[2021-06-17] MEDS: amLODIPine 10 MG TAB PO (21:08)
[2021-06-17] MEDS: Metoprolol CR 100 MG TABCR PO (21:09)
[2021-06-17] MEDS: Valsartan 80 MG TAB 320 MG PO (21:09)
[2021-06-18 00:10] VITALS: BP 129/63; PULSE 74; RESP 18; TEMP 36.9
[2021-06-18 04:12] VITALS: BP 140/71; PULSE 73; RESP 18; TEMP 36.6
[2021-06-18] MEDS: Ketorolac 30 MG/ML VIAL IVP (05:59)
[2021-06-18 07:45] VITALS: BP 143/70; PULSE 67; RESP 14; TEMP 37.2; O2SAT 97
[2021-06-18] MEDS: metFORMIN 500 MG TAB 1000 MG PO (08:00)
[2021-06-18] MEDS: Cholecalciferol (Vitamin D3) 1,000 UNIT TAB 4000 UNITS PO (08:02)
[2021-06-18] MEDS: Magnesium Oxide 400 MG TAB PO (08:03)
[2021-06-18] MEDS: Furosemide 20 MG TAB PO (08:04)
[2021-06-18] MEDS: Docusate Sodium 100 MG CAP PO (08:04)
[2021-06-18] MEDS: SITagliptin 100 MG TAB PO (08:05)
--- NOTE | 2021-06-18 08:19 | DSE_ITS ---
Date of service: 06/18/21 Time of Service: 08:20 DS: Diagnosis Discharge Diagnosis (1) History of laparoscopic-assisted vaginal hysterectomy: Status: Acute (2) Hx of BSO (bilateral salpingo-oophorectomy): Status: Acute Discharge Plan Disposition Patient Disposition: HOME Condition: Fair Discharge Details Reason For Visit: HYST Admit Date/Time: 06/17/21 13:23 Admit Provider: Dilma Hanson Attending Provider: Dilma Hanson Primary Care Provider: Christopher Mcclain Hospital Course Hospital Course: Patient was admitted the morning of surgery and underwent a laparoscopic assisted vaginal hysterectomy with bilateral salpingo-oophorectomy without complications. She required nonsteroidal anti-inflammatories for pain control and was discharged home on postop day #1 voiding spontaneously and tolerating regular diet. Plan is to have follow-up in 2 weeks for discussion of pathology results and inspection of incisions. She was instructed not to drive a car for approximately week. She will use Motrin for pain. She was instructed no heavy lifting and nothing in the vagina Home Meds and New Rx's Prescriptions: No Action (DME) lancets [FreeStyle Lancets] 28 gauge misc See Dose Instructions .ROUTE .MEDSUPPLY Qty: 100 RF: 11 magnesium 250 mg tablet 250 mg PO DAILY Qty: 90 RF: 3 cholecalciferol (vitamin D3) [Vitamin D3] 1,000 unit capsule 4,000 unit PO DAILY RF: 0 furosemide 20 mg tablet 20 mg PO DAILY Qty: 90 RF: 3 Januvia 100 mg tablet 100 mg PO DAILY Qty: 90 RF: 3 metformin 500 mg tablet 1,000 mg PO BID Qty: 360 RF: 3 (DME) blood-glucose meter [FreeStyle Lite Meter] Kit See Dose Instructions .ROUTE .MEDSUPPLY Qty: 1 RF: 0 (DME) FreeStyle Test Strip See Dose Instructions .ROUTE .MEDSUPPLY Qty: 100 RF: 11 medroxyprogesterone [Provera] 5 mg tablet 5 mg PO DAILY Qty: 30 RF: 2 norethindrone acetate 5 mg tablet 5 mg PO .COMPLEX Qty: 60 RF: 0 atorvastatin 80 mg tablet 80 mg PO QHS Qty: 90 RF: 3 milk thistle 175 mg Capsule 175 mg PO DAILY RF: 0 metoprolol succinate 100 mg tablet extended release 24 hr 100 mg PO HS RF: 0 amlodipine 10 mg tablet 10 mg PO HS RF: 0 valsartan 320 mg tablet 320 mg PO HS RF: 0 Discharge Instructions Stand Alone Forms: DSU Post Gynecology Surgery Activity:: Activity as Tolerated Equipment/Supplies:: No Equipment Needed Diet:: As Tolerated Discharge Orders Discharge Orders: Discharge Order (Routine); Ordered 06/18/21 Ordered By: Dilma Hanson DS: Summary Time Spent with Patient providing and/or coordinating discharge services: Less than 30 minutes Status at Discharge Functional status at discharge: independent ambulation Overall status at discharge: patient is progressing back to baseline Mental Status: mental status grossly normal Speech and Movement: speech and movement normal Mood: congruent mood Affect: normal affect Exam Narrative Exam Narrative: Patient was pain-free during the night. No nausea. She would like to be discharged home. Const General: no acute distress Nutritional Appearance: obese Orientation: alert, awake and oriented x3 Resp Effort & Inspection: normal respiratory effort Auscultation: clear to auscultation bilaterally Cardio Rate: regular rate Rhythm: regular rhythm GI Inspection: normal to inspection, incision (Trocar sites clean dry and intact) and obesity Palpation: soft, no masses and nontender General: deferred Speculum Exam - Vagina: normal vaginal discharge (No bleeding during the night) Back/Spine/Pelvis Back: no CVA tenderness and No erythema Skin General skin exam: no rashes or lesions noted Extrem General: normal to inspection Psych Appearance: grossly normal Mental Status: mental status grossly normal Speech and Movement: speech and movement normal Mood: congruent mood Affect: normal affect DS: Data Vitals/I&O Vitals and I&O: Vital Signs Temperature 99.0 F 06/18/21 07:45 Temperature Source Oral 06/18/21 07:45 Pulse 67 06/18/21 07:45 Pulse Rhythm Regular 06/18/21 07:45 Respiratory Rate 14 06/18/21 07:45 Respiratory Effort 06/18/21 07:45 Respiratory Depth Normal 06/18/21 07:45 Respiratory Pattern Normal 06/18/21 07:45 Blood Pressure 143/70 H 06/18/21 07:45 Pulse Oximetry 97 06/18/21 07:45 Respiratory End-tidal CO2 32 06/17/21 13:56 Oxygen Delivery Method Room Air 06/18/21 07:45 Oxygen Flow Rate 0 06/18/21 07:45 Pain Level 0 06/18/21 04:12 Intake & Output 06/17/21 06/17/21 06/18/21 11:59 23:59 11:59 Intake Total 100 / 4.917 1924.917 / 2024.917 Output Total 1575 / 1575 500 / 500 Balance 100 / 449.917 349.917 / 449.917 -500 / -500 Weight 243 lb 13.3 oz Intake: IV 100 / 7143.055 2607.917 / 1547.917 Oral 477 / 477 Output: Urine 1375 / 1375 500 / 500 Estimated Blood Loss 200 / 200 Other: Urine Color Yellow Indigo Indigo Urine Appearance Clear Clear Clear Urine Odor None None Comment catheter removed, peripad changed Emesis Description None Voiding Methods Toilet [facility] Medical History Diabetes Fibroid uterus Hyperlipidemia Hypertension ovarian cysts 2013 5.5cm R ovary 2014 R ovary 3.3cm L ovary 2.8cm. Simple appearing. will repeat u/s in 2016 Pedal edema Postmenopausal bleeding after 3yrs of amenorrhea. EMBx 05/2014 hyperplasia w/o atypia. Rx with MDA for 6mo followed by Mirena. 2015 Repeat EMBx with Mirena in place. B9 inactive endometrium. ES 9mm. 2018. EMBx____ Surgical History (Updated 06/18/21 @ 08:21 by Dilma Hanson MD) Appendectomy (~1980) w/ Dx of mesenteric adenitis section (~1993) for breech Diagnostic Laproscopy (~1975) 1990 ovarian cystectomy. Ligation of fallopian tube Surgeries 1964 eye surgery 1990 - ovarian cystectomy Family History Mother , 87 Diabetes CAD (coronary artery disease) Heart disease Hyperlipidemia Hypertension Father , 83 Diabetes CAD (coronary artery disease) Heart disease Hyperlipidemia Hypertension Sister Essential hypertension Hyperlipidemia Uterine cancer Sister Essential hypertension Sister Essential hypertension Hyperlipidemia Brother Heart disease Hyperlipidemia Hypertension Brother Hypertension Hyperlipidemia Brother Diabetes Heart disease Hypertension Hyperlipidemia Brother Hypertension Hyperlipidemia Maternal Grandfather , 70s Heart disease Paternal Grandfather , 59 Heart disease Brain cancer Maternal Grandmother , 70s Stroke Hypertension Paternal Grandmother , FLU at age 76. No problems noted. Son No problems noted. Daughter No problems noted. Brother Hypertension Social History Smoking/Tobacco Use Status: Former Tobacco Use Quit Date: 10/31/12 Tobacco: How many years used: 35 Second Hand Exposure: Yes Smoking risk assessment performed?: Yes Alcohol Intake: current Alcohol Intake frequency: a few times a week Alcohol type: beer and hard liquor Drug use: Never Caregiver/Support person: No Household members: spouse, family and other Details: 4 Housing: house Communication Needs: None current occupation: RETAIL SELF EMPLOYED Pets and animals: Yes Pets and animals: cat(s) and farm animals Sexually active: No Do you think of yourself as: straight/heterosexual Current gender identity: female What is your relationship status?: How often do you talk on the phone with friends or family?: three or more times per week How often do you get together with friends or relatives?: three or more times per week Do you belong to any clubs or organized social groups?: no Panel score (0-1 are the most socially isolated patients): 2 What type of physical activity do you participate in: none Maddie/Adventism: None Seatbelt use: always Drive intox or ride w/intox commercial relief driver: No Do you feel safe at home: Yes Do you feel safe in your relationship?: Yes Female Reproductive History Menstrual control method: progestin IUCD Menopause type: natural History History 3 Para Hx # Term Pregnancies 2 Multiple births Hx # Pregnancies Ectopic pregnancies AB induced Hx Number of Living Children AB spontaneous
--- NOTE | 2021-06-18 10:55 | W.PM.OP ---
Date of service: 06/18/21 Time of Service: 10:56 Operative Note Operative Note DATE OF PROCEDURE: 06/17/21 PRE-OP DIAGNOSIS: abnormal uterine bleeding. fibroid uterus POST-OP DIAGNOSIS: same PROCEDURE: Laparoscopic assisted hysterectomy with bilateral salpingo-oophorectomy, bladder cystoscopy SURGEON: Dilma Hanson ASSISTING SURGEON: Guerline Stewart ANESTHESIA TYPE: General LMA/ETT and Spinal Refer to Anesthesia Record ESTIMATED BLOOD LOSS: 200 PATHOLOGY: other (uterus, cervix, fallopian tubes and ovaries) COMPLICATIONS: None Patient was transported to: PACU Patient's condition: stable Indications: Pt is a 61 yo 3, para 2, female who has experienced PMB since 2013. There is a fundal intramural fibroid in the lower segment uterine fibroid. She has undergone four endometrial biopsies which have been negative for dysplasia and has been treated with oral and intrauterine progesterone with varying degrees of success. She wishes definitive treatment. Findings: Uterus was enlarged with a fibroid occupying the fundus. The serosal surface had a cystic area ~ [id number] in proximity to the L uterine cornua. The L adnexa was adherent to the small intestine and filmy adhesions obscured the L ovary. The R adnexa had minimal adhesions. 2cm of omentum adherent to the anterior abdominal wall. No evidence of a defect in the anterior abdominal wall. Procedure Description: Patient was taken to the operating room where she was placed in the sitting position and spinal anesthesia was administered. She received 2 g of Ancef prior to skin incision. She was then placed in the dorsal supine position and general endotracheal anesthesia was administered without difficulty. She was then placed in the dorsal lithotomy position in [facility] with SCDs in place. After being prepped and draped in the usual sterile fashion a surgical timeout was performed. Wylie catheter was placed to gravity drainage. A bivalve speculum was placed in the vagina the anterior lip of the cervix was grasped with a single-tooth tenaculum. A Elisa uterine manipulator was successfully inserted into the uterine cavity, the catheter bulb inflated with 8 cc of normal saline and the device left in place. Attention was then turned to the patient's abdomen. The umbilical fold was infiltrated with quarter percent Marcaine without epinephrine. A scalpel was then used to make a 12mm vertical skin incision in the umbilical fold. Two penetrating towel clips were used to tent up the skin and through the periumbilical incision and a Veres needle was introduced into the abdomen with carbon dioxide as the distention medium. Intra-abdominal placement was confirmed by a drop in the intra-abdominal pressure. Once a pneumoperitoneum was established a 12 mm Visiport was placed under direct visualization and intra-abdominal placement confirmed by use of the laparoscope. Patient was then placed in Trendelenburg position. At two sites approximately 6 cm diagonally from the umbilical incision the skin was infiltrated with 1cc of 0.25% Marcaine without epinephrine, incised with a scalpel and two 5 mm lower ports were placed under direct visualization. A 2cm segment of omentum was adherent to the anterior abdominal wall below the umbilical port site. That was clamped, cauterized and transected with the Ligasure device. A combination of blunt disection and use of the LigaSure electrocautery device was used dissect the remnant of the left fallopain tube from bowel. This allowed mobilization of the left ovary so it was possible clamp, cauterize and transect the proper ligament of the left ovary and the remnant of the fallopian tube attatched mesosalpinx oat the level of the left uterine cornua. The suspensory ligament of the left ovary was the sequentially clamped, cauterized and transected. The detached adnexa was then placed in the anterior cul-de-sac. The left round ligament and broad ligament were then clamped, cauterized and transected to the level of the lower uterine segment. The vesico-uterine peritoneum was incised and then from the lower uterine segment and mobilized off of the body of the cervix. The pedicles of the suspensory, round and broad ligaments were inspected and noted to be hemostatic. On the contralateral side the right proper ovarian ligament with attached mesoovarium was cauterized and transected allowing mobilization of the ovary visualization of the suspensory ligament. LigaSure device was used to clamp cauterize and transect the suspensory ligament of the right ovary followed by the round, and right broad ligament to the level of the lower uterine segment. An Endo Catch bag was inserted into the abdomen and a correct presentation both right and left adnexa were placed in the bag and delivered through the 12 mm umbilical port incision. Of the right and left sided were inspected and noted to be hemostatic. Decision was made to proceed with the vaginal portion of the case. Laparoscopic instruments were removed from the ports , the pneumoperitoneum was reduced, and the was abdomen covered with sterile drape. A weighted vaginal speculum was placed in the vagina and the anterior and posterior lips of the cervix were grasped with Pauly clamps. A solution of 1% lidocaine with dilute epinephrine was used to infiltrate the body of the cervix in a circumferential fashion followed by a circumferential incision of the cervical epithelium with Bovie electrocautery. The vesicouterine fascia was identified and the anterior cul-de-sac was entered using blunt and sharp disection. Through this incision a curved right angled retractor was inserted and used to retract the bladder away from the operative field. The posterior cul-de-sac was entered sharply and through the this incision a long billed weighted speculum was placed. The left and right uterosacral ligament complexes were identified clamped, transected and suture-ligated and the suture held long. The remaining right and left broad ligament attatchments were sequentially clamped, cauterized, and transected and the specimen was passed off of the operative field. All of the pedicle sites were inspected and were hemostatic. The vaginal cuff was reapproximated in a vertical fashion with an interrupted suture of 0 Vicryl. Instruments removed from the vagina and attention was again turned to the abdomen where a pneumoperitoneum was reestablished and the pelvis inspected using the laparoscope. The vaginal cuff was intact and was hemostatic as were the round ligament and broad ligament pedicles both at 15mmHg and when the pressure was temporarily reduced to 5mmHg. The instruments were removed from the port sites under direct visualization, the pneumoperitoneum reduced, and the ports removed. The fascia of the periumbilical skin incision was closed with interrupted suture of 0 Vicryl. The skin of all port site incisions were reapproximated with a subcuticular closure of 4-0 Monocryl and and covered with skin glue. A cystoscopy was performed with both ureteral jets patent with a brisk reflux of urine from each. The bladder was inspected and no evidence of sutures were present. Wylie catheter was reinserted to gravity drainage and the patient was placed in the dorsal supine position, awakened, extubated, and transported recovery area in stable condition. All sponge lap needle counts correct x2.
== END 2021-06-18 09:10 | disposition home or self-care (01) ==
LOC: OBS 14:35
PROVIDERS: Admitting Provider Obstetrics & Gynecology Gynecology; PCP Nurse Practitioner Family; Visit Provider Obstetrics & Gynecology Gynecology
PROC: 0UT9FZZ Resection of Uterus, Via Natural or Artificial Opening With Percutaneous Endoscopic Assistance (ICD-10-PCS; CPT 58552; principal; 2021-06-17 08:30)
DX: D25.2 Subserosal leiomyoma of uterus (principal); D25.1 Intramural leiomyoma of uterus; D25.0 Submucous leiomyoma of uterus; N83.8 Other noninflammatory disorders of ovary, fallopian tube and broad ligament; N70.11 Chronic salpingitis; D26.1 Other benign neoplasm of corpus uteri; N84.0 Polyp of corpus uteri; N94.89 Other specified conditions associated with female genital organs and menstrual cycle; N93.8 Other specified abnormal uterine and vaginal bleeding; I10 Essential (primary) hypertension; E78.5 Hyperlipidemia, unspecified; E11.9 Type 2 diabetes mellitus without complications; K76.0 Fatty (change of) liver, not elsewhere classified; Z98.51 Tubal ligation status
CPT/HCPCS: 58552; 52000; 88305; 88307; J0690; J1100; J1885; J2001; J2405; J3490

== ENCOUNTER 2021-09-23 02:25 | Outpatient (CLI) | payer MEDICAID, SELFPAY ==
[2021-09-23 09:02] LABS: Hemoglobin A1C 6.9 % (<5.7)
[2021-09-23 10:29] LABS: Calculated LDL 249 mg/dL (<100); Cholesterol 357 mg/dL (<200); HDL Cholesterol 50 mg/dL (40-60); Triglyceride 290 mg/dL (<150)
== END 2021-09-23 02:26 | disposition home or self-care (01) ==
LOC: LBO 02:25
PROVIDERS: PCP Nurse Practitioner Family; Visit Provider Nurse Practitioner Family
DX: E11.9 Type 2 diabetes mellitus without complications (principal); E78.5 Hyperlipidemia, unspecified
CPT/HCPCS: 36415; 80061; 83036

== ENCOUNTER 2022-02-10 03:07 | Outpatient (CLI) | payer MEDICAID, SELFPAY | END 2022-02-10 03:08 | disposition home or self-care (01) | LOC: LBO 03:07 | PROVIDERS: PCP Nurse Practitioner Family; Visit Provider Nurse Practitioner Family ==

== ENCOUNTER 2022-06-24 03:04 | Outpatient (CLI) | payer MEDICAID, SELFPAY ==
[2022-06-24 09:02] LABS: Hemoglobin A1C 6.9 % (<5.7)
[2022-06-24 09:17] LABS: Anion Gap 15.4 mmol/L (3-11); BUN 9 mg/dL (7-18); CO2 23.6 mmol/L (21.0-32.0); CREATININE 0.7 mg/dL (0.55-1.02); Calcium 8.8 mg/dL (8.5-10.1); Calculated LDL 147 mg/dL (<100); Chloride 102 mmol/L (98-107); Cholesterol 242 mg/dL (<200); Glucose 138 mg/dL (74-106); HDL Cholesterol 59 mg/dL (40-60); Potassium 3.8 mmol/L (3.5-5.1); Sodium 141 mmol/L (136-145); Triglyceride 183 mg/dL (<150)
== END 2022-06-24 03:05 | disposition home or self-care (01) ==
LOC: LBO 03:05
PROVIDERS: PCP Nurse Practitioner Family; Visit Provider Nurse Practitioner Family
DX: E78.2 Mixed hyperlipidemia (principal); I10 Essential (primary) hypertension; E11.9 Type 2 diabetes mellitus without complications
CPT/HCPCS: 36415; 80048; 80061; 83036

== ENCOUNTER 2022-12-07 02:25 | Outpatient (CLI) | payer MEDICAID, SELFPAY ==
--- NOTE | 2022-12-07 07:30 | DI.MAMMO_ITS ---
Exam(s) MAMMO SCREENING EXAM: MAMMO SCREENING CLINICAL HISTORY: screening,z12.39. TECHNIQUE: Bilateral full field digital CC and MLO mammographic images were obtained with 3D tomosyn thesis and utilizing computer aided detection (CAD). COMPARISON: Prior mammograms were reviewed. This patient underwent stereotactic biopsy of the right breast for microcalcification group following December 2020 mammogram. Apparently negative for malignancy. FINDINGS: There has been no significant change in the appearance and distribution of the fibroglandular tissue. The previously described microcalcification in the upper outer quadrant of right breast is no longer seen. Biopsy marker clip at this location is now evident. There are no new spiculated masses nor malignant appearing microcalcification groups. Benign-appearing microcalcification group in the left breast again noted. There is no significant architectural distortion nor skin thickening-retraction. IMPRESSION: No radiographic evidence of malignancy. BI-RADS Category 2 - Benign Findings Breast Density - Category B - Scattered areas of fibroglandular density Breast density Category C or D implies that the patient has dense breast tissue. Dense breast tissue can make it harder to find cancer on a mammogram. Dense breast tissue is also associated with an incr eased risk of breast cancer. This information about the result of the mammogram report was provided to the patient to raise their awareness. Use this report when you speak with the patient about their risks for breast cancer, which includes their family history. At that time, you may recommend additional screening tests (Ultrasoun d or MRI) as these tests may add significant information. A negative radiographic report should not delay biopsy if a dominant or clinically suspicious mass is present. Up to ten percent of cancers are not identified on mammography. A negative report may reinforce clinical impression. Adenosis and dense breasts may obscure an underlying neoplasm. False positive reports average 6 to 10%. Patient will receive a letter notifying them of these results.
== END 2022-12-07 02:45 ==
LOC: DI 02:26
PROVIDERS: PCP Nurse Practitioner Family; Visit Provider Obstetrics & Gynecology Gynecology
DX: Z12.31 Encounter for screening mammogram for malignant neoplasm of breast (principal)
CPT/HCPCS: 77063; 77067

== ENCOUNTER 2023-02-09 03:12 | Outpatient (CLI) | payer MEDICAID, SELFPAY ==
[2023-02-09 10:45] LABS: Calculated LDL 163 mg/dL (<100); Cholesterol 249 mg/dL (<200); HDL Cholesterol 61 mg/dL (40-60); Triglyceride 128 mg/dL (<150)
== END 2023-02-09 03:13 | disposition home or self-care (01) ==
LOC: LBO 03:12
PROVIDERS: PCP Nurse Practitioner Family; Visit Provider Nurse Practitioner Family
DX: E11.9 Type 2 diabetes mellitus without complications (principal); E78.5 Hyperlipidemia, unspecified
CPT/HCPCS: 36415; 80061; 83036

== ENCOUNTER 2023-07-06 04:22 | Outpatient (CLI) | payer MEDICAID, SELFPAY ==
[2023-07-06 12:23] LABS: Potassium 3.9 mmol/L (3.5-5.1)
[2023-07-06 12:30] LABS: Hemoglobin A1C 7.1 % (<5.7)
== END 2023-07-06 04:23 | disposition home or self-care (01) ==
LOC: LOS 04:22
PROVIDERS: PCP Nurse Practitioner Family; Visit Provider Nurse Practitioner Family
DX: I10 Essential (primary) hypertension (principal); E11.9 Type 2 diabetes mellitus without complications
CPT/HCPCS: 36415; 82565; 83036; 84132

== ENCOUNTER → 2023-07-20 01:26 | Outpatient (CLI) | payer MEDICAID, SELFPAY ==
--- NOTE | 2023-07-20 07:50 | DI.RAD_ITS ---
Exam(s) XR KNEE LT 3V AP,LAT,NETO EXAM: XR KNEE LT 3V AP,LAT,NETO CLINICAL HISTORY: Worsening knee pain,M25.562. TECHNIQUE: 2D digital imaging was performed. Three views. COMPARISON: No exams were available for comparison FINDINGS: BONES: No acute fracture is present. No bony destructive lesion is seen. JOINTS: There is severe narrowing of the medial femoral tibial joint space, periarticular sclerosis a nd spurring. There is valgus angulation with widening of the lateral femoral tibial joint. Spurring is also noted at the patellofemoral joint. No joint effusion is seen. SOFT TISSUE: Vascular calcifications. IMPRESSION: Severe degenerative changes medial femoral tibial joint. DATA REPOSITORY: RADIATION DOSE DELIVERED:
== END ==
PROVIDERS: PCP Nurse Practitioner Family; Visit Provider Nurse Practitioner Family
DX: M17.12 Unilateral primary osteoarthritis, left knee (principal)
CPT/HCPCS: 73562

== ENCOUNTER 2024-07-18 10:02 | Outpatient (CLI) | payer MEDICAID, SELFPAY ==
[2024-07-18 12:30] LABS: CREATININE 1.1 mg/dL (0.55-1.02); Calculated LDL 176 mg/dL (<100); Cholesterol 266 mg/dL (<200); Estimated GFR 56.46 (mL/min/1.73m2); HDL Cholesterol 59 mg/dL (40-60); Potassium 3.9 mmol/L (3.5-5.1); Triglyceride 158 mg/dL (<150)
== END 2024-07-18 10:03 | disposition home or self-care (01) ==
LOC: LOS 10:02
PROVIDERS: PCP Nurse Practitioner Family; Referring Provider Nurse Practitioner Family; Visit Provider Nurse Practitioner Family
DX: I10 Essential (primary) hypertension (principal); Z13.220 Encounter for screening for lipoid disorders; E78.5 Hyperlipidemia, unspecified; E11.9 Type 2 diabetes mellitus without complications; Z12.39 Encounter for other screening for malignant neoplasm of breast; R21 Rash and other nonspecific skin eruption; E11.69 Type 2 diabetes mellitus with other specified complication; E66.9 Obesity, unspecified
CPT/HCPCS: 36415; 80061; 82565; 84132

== ENCOUNTER 2024-07-18 18:38 | Outpatient (REF) | payer MEDICAID, SELFPAY ==
[2024-07-18 13:22] LABS: COMMENT (LAB VIEW ONLY) 23.79 mg/dL; Microalb ug/mg Crea 46.7 ug/mg Cr
== END 2024-07-18 18:39 | disposition home or self-care (01) ==
LOC: LBN 18:38
PROVIDERS: PCP Nurse Practitioner Family; Visit Provider Nurse Practitioner Family
DX: E11.9 Type 2 diabetes mellitus without complications (principal); E78.5 Hyperlipidemia, unspecified; Z13.220 Encounter for screening for lipoid disorders; I10 Essential (primary) hypertension; Z12.39 Encounter for other screening for malignant neoplasm of breast
CPT/HCPCS: 82043; 82570

== ENCOUNTER 2024-07-25 01:45 | Outpatient (CLI) | payer MEDICAID, SELFPAY ==
--- NOTE | 2024-07-25 07:45 | DI.MAMMO_ITS ---
Exam(s) MAMMO SCREENING EXAM: MAMMO SCREENING CLINICAL HISTORY: screening,Z12.39 TECHNIQUE: Bilateral full field digital CC and MLO mammographic images were obtained with 3D tomosyn thesis and utilizing computer aided detection (CAD). COMPARISON: Available for comparison. FINDINGS: Masses/Architectural Distortion: There is a biopsy clip again seen in the upper outer quadrant of the right breast. No suspicious masses are seen. No new areas of architectural distortion are seen. Microcalcifications: No suspicious pleomorphic-type are seen. Stable calcifications are seen in both breasts. Skin Thickening/Nipple Retraction: None. IMPRESSION: 1. No significant interval change with no specific features of malignancy noted. 2. Unless there is more urgent need, screening mammography is recommended, as per [employer] guidelines. BI-RADS Category 2 - Benign Findings Breast Density - Category B - Scattered areas of fibroglandular density Breast density category C or D implies that the patient has dense breast tissue. Dense breast tissue is very common and is not abnormal but dense breast tissue can make it harder to find cancer on a ma mmogram. Also, dense breast tissue may increase their breast cancer risk. This information about the result of the mammogram report was provided to the patient to raise their awareness. Use this report when you speak with the patient about their risks for breast cancer, which includes their family hist ory. At that time, you may recommend for more screening tests (Ultrasound or MRI) as they might be us eful based on their risk. A negative radiographic report should not delay biopsy if a dominant or clinically suspicious mass is present. Up to ten percent of cancers are not identified on mammography. A negative report may reinforce clinical impression. Adenosis and dense breasts may obscure an underlying neoplasm. False positive reports average 6 to 10%. Patient will receive a letter notifying them of these results.
== END 2024-07-25 02:05 ==
LOC: DI 01:45
PROVIDERS: PCP Nurse Practitioner Family; Visit Provider Nurse Practitioner Family
DX: Z12.31 Encounter for screening mammogram for malignant neoplasm of breast (principal)
CPT/HCPCS: 77063; 77067

== ENCOUNTER 2024-10-08 15:38 | Outpatient (CLI) | payer MEDICAID, SELFPAY ==
--- NOTE | 2024-10-08 15:30 | DI.RAD_ITS ---
Exam(s) XR STANDING ALIGNMENT EXAM: XR STANDING ALIGNMENT CLINICAL HISTORY: eval L knee alignment. TECHNIQUE: 2D digital imaging was performed. Standing AP views were performed from the pelvis throu gh the ankles. COMPARISON: CR XR KNEE LT 3V AP,LAT,NETO from 07/20/2023 FINDINGS: BONES: No acute fracture is present. No bony destructive lesion is seen. Leg length discrepancy: No significant overall leg length discrepancy. JOINTS: Knees: Severe narrowing of the medial femoral tibial joint space causing mild varus angulatio n. Mild degenerative changes are noted in the right knee. The ankle joints show narrowing of the medial tibiotalar joint spaces bilaterally. The hip joints are unremarkable. SOFT TISSUE: Vascular calcifications. IMPRESSION: Severe degenerative changes in the medial femoral tibial joint space of the left knee. No significant leg length discrepancy. DATA REPOSITORY: RADIATION DOSE DELIVERED:
== END 2024-10-08 15:39 | disposition home or self-care (01) ==
LOC: DIORS 15:38
PROVIDERS: PCP Nurse Practitioner Family; Visit Provider Student in an Organized Health Care Education/Training Program
DX: M17.12 Unilateral primary osteoarthritis, left knee (principal)
CPT/HCPCS: 77073

== ENCOUNTER 2024-10-22 02:31 | Outpatient (CLI) | payer MEDICAID, SELFPAY ==
[2024-10-22 09:19] LABS: HCT 36.8 % (36.0-46.0); HGB 12.6 g/dL (11.2-15.7); MCH 33.4 pg (27.0-33.0); MCHC 34.2 % (32.0-36.0); MCV 98 fL (80-95); MPV 9.8 fL (8.0-11.0); Platelet Count 288 10^3/uL (130-400); RBC 3.77 10^6/uL (3.93-5.22); RDW 12.9 % (11.7-14.6); RDW-SD 46.5 fL; WBC 6.65 10^3/uL (4.4-10.8)
[2024-10-22 09:39] LABS: Anion Gap 9.3 mmol/L (3-11); BUN 20 mg/dL (7-18); CO2 29.7 mmol/L (21.0-32.0); CREATININE 1.2 mg/dL (0.55-1.02); Calcium 9.6 mg/dL (8.5-10.1); Chloride 100 mmol/L (98-107); Estimated GFR 50.86 (mL/min/1.73m2); Glucose 138 mg/dL (74-106); Potassium 4.1 mmol/L (3.5-5.1); Sodium 139 mmol/L (136-145)
[2024-10-24 11:36] LABS: Fructosamine 241 mcmol/L (200 - 285)
== END 2024-10-22 02:32 | disposition home or self-care (01) ==
LOC: LBO 02:31
PROVIDERS: PCP Nurse Practitioner Family; Visit Provider Student in an Organized Health Care Education/Training Program
DX: M17.12 Unilateral primary osteoarthritis, left knee (principal); Z01.818 Encounter for other preprocedural examination; E11.69 Type 2 diabetes mellitus with other specified complication; E66.9 Obesity, unspecified
CPT/HCPCS: 36415; 80048; 85027; 82985

== ENCOUNTER 2024-11-06 07:06 | Day surgery (SDC) | payer MEDICAID, SELFPAY ==
[2024-11-06] VITALS (22 sets, daily range): BP systolic 132–179; BP diastolic 68–78; PULSE 72–80; RESP 15–23; TEMP 36.3–36.6; O2SAT 93–98; BMI 44.6
--- NOTE | 2024-11-06 07:09 | ANES.PREOP_ITS ---
General Info Date of Service Date Performed: 11/06/24 Height: 5 ft 4.5 in Weight: 119.748 kg Body Mass Index (BMI): 44.6 Surgical Procedure: Operation Date: 11/06/24 09:25 Proposed Procedure Side Surgeon p Knee Total Arthroplasty Left Yemi Galloway MD Meds Allergies and Home Medications Allergies Allergy/AdvReac Type Severity Reaction Status Date / Time clindamycin AdvReac Severe GI UPSET Verified 11/06/24 07:29 hydrochlorothiazide AdvReac Intermediate MUSCLE Verified 11/06/24 07:29 ACHES, FATIGUE lisinopril AdvReac Intermediate UNABLE TO Verified 11/06/24 07:29 TOLERATE Penicillins AdvReac Intermediate MOUTH SORES Verified 11/06/24 07:29 erythromycin base AdvReac Mild GI UPSET Verified 11/06/24 07:29 simvastatin AdvReac Unknown MUSCLE Verified 11/06/24 07:29 ACHES CITRONELLA OIL AdvReac Intermediate ILLNESS, Uncoded 11/06/24 07:29 NAUSEA Home Medication ?Medication ?Instructions ?Recorded cholecalciferol (vitamin D3) 25 4,000 unit PO DAILY 06/05/19 mcg (1,000 unit) capsule (Vitamin D3) blood-glucose meter (FreeStyle #1 ea 01/09/21 Lite Meter kit) amlodipine 10 mg tablet 10 mg PO HS #90 tabs 08/01/24 atorvastatin 20 mg tablet 20 mg PO DAILY #90 tabs 08/01/24 glipizide 10 mg tablet 10 mg PO DAILY #90 tabs 08/01/24 sitagliptin phosphate 100 mg 100 mg PO DAILY #90 tabs 08/01/24 tablet (Januvia) torsemide 20 mg tablet 20 mg PO DAILY #90 tabs 08/01/24 triamcinolone acetonide 0.1 % 1 applic topical BID #30 grams 08/01/24 topical cream valsartan 320 mg tablet 320 mg PO DAILY #90 tabs 08/01/24 metformin 500 mg tablet 1,000 mg (2 x 500 mg) PO BID #360 09/06/24 tabs magnesium oxide 500 mg PO DAILY #90 tabs 10/15/24 metoprolol succinate 100 mg 100 mg PO DAILY 11/01/24 tablet,extended release 24 hr acetaminophen 500 mg tablet 1,000 mg (2 x 500 mg) PO Q8H PRN 11/06/24 pain #90 tabs aspirin 81 mg tablet,delayed 81 mg PO BID 30 days #60 tabs 11/06/24 release celecoxib 200 mg capsule (Celebrex) 200 mg PO BID PRN #60 caps 11/06/24 docusate sodium 100 mg capsule 100 mg PO BID #30 caps 11/06/24 (Colace) gabapentin 300 mg capsule 300 mg PO QHS #14 caps 11/06/24 oxycodone 5 mg tablet 5 mg PO Q4H PRN #18 tabs 11/06/24 pantoprazole 40 mg tablet,delayed 40 mg PO DAILY #14 tabs 11/06/24 release Current Visit Medications: Current Medications Generic Name Dose Route Start Last Admin Trade Name Freq PRN Reason Stop Dose Admin Acetaminophen 1,000 mg 11/06/24 06:00 Acetaminophen 500 Mg Tab PO 11/06/24 23:59 PREOP TIMOTHY Celecoxib 400 mg 11/06/24 06:00 Celecoxib 200 Mg Cap PO 11/06/24 23:59 PREOP TIMOTHY Gabapentin 300 mg 11/06/24 06:00 Gabapentin 300 Mg Cap PO 11/06/24 23:59 PREOP TIMOTHY Ringer's Solution 1,000 mls @ 80 mls/hr 11/06/24 06:00 IV 11/06/24 23:59 INFUSION TIMOTHY Cefazolin Sodium 3,000 mg/ 100 mls @ 200 mls/hr 11/06/24 06:00 Sodium Chloride IV 11/06/24 23:59 PREOP TIMOTHY Tranexamic Acid/Sodium Chloride 1,000 mg in 100 mls @ 600 mls/hr 11/06/24 06:00 IVPB 11/06/24 23:59 PREOP TIMOTHY IV Miscellaneous Supplies 1 each 11/06/24 06:00 Iv Access IV 11/06/24 23:59 DIRECTED TIMOTHY Sodium Chloride 0 ml 11/06/24 06:00 Normal Saline Flush 10 Ml Syr IV 11/06/24 23:59 PRN PRN Sodium Chloride 0 ml 11/06/24 06:00 Normal Saline 10 Ml Vial IJ 11/06/24 23:59 DIRECTED PRN Sterile Water 0 ml 11/06/24 06:00 Water,Injection,Sterile 10 Ml Vial IJ 11/06/24 23:59 DIRECTED PRN PFSH Active Problems Active Problems: Problem Status Onset Code Osteoarthritis of left knee Chronic M17.12 Fatigue Acute R53.83 Abnormal mammogram of right breast Acute R92.8 Hypomagnesemia Acute E83.42 Pedal edema Acute R60.0 Cholelithiasis without obstruction Acute K80.20 History of tobacco use Acute Z87.891 Hypertension Chronic Non-alcoholic fatty liver disease Acute 09/29/08 K76.0 Positive for microalbuminuria Chronic R80.9 Hyperlipidemia Chronic E78.5 Diabetes mellitus type 2 in obese Chronic E11.69, E66.9 Medical History Medical History Fibroid uterus Hysterectomy in 2020 ovarian cysts 2013 5.5cm R ovary 2014 R ovary 3.3cm L ovary 2.8cm. Simple appearing. will repeat u/s in 2015 Surgical History Surgical History Hx of BSO (bilateral salpingo-oophorectomy) History of laparoscopic-assisted vaginal hysterectomy History of section History of eye surgery Status post appendectomy Status post ovarian cystectomy Ligation of fallopian tube Surgeries 1965 eye surgery 1990 - ovarian cystectomy section (~1993) for breech Diagnostic Laproscopy (~1975) 1990 ovarian cystectomy. Appendectomy (~1980) w/ Dx of mesenteric adenitis Tobacco Smoking/Tobacco Use Status: Former Tobacco Use Passive smoking exposure: Yes Second hand exposure: Yes Alcohol Alcohol Intake: current Alcohol intake frequency: a few times a week Alcohol type: beer and hard liquor Substance Use Substance use: Never Substance use type: former substance user and marijuana Prental History History 2 3 Para Hx # Term Pregnancies 2 Multiple births Hx # Pregnancies Ectopic pregnancies AB induced Hx Number of Living Children AB spontaneous Vital Signs and Lab Results Vital Signs Most Recent Vital Signs in EMR: Temp Pulse Resp BP Pulse Ox 36.3 C L 77 16 132/74 96 11/06/24 07:09 11/06/24 07:09 11/06/24 07:09 11/06/24 07:09 11/06/24 07:09 Lab Results Blood Type / Crossmatch: 2 No Data to Display Complete Blood Count: 2 White Blood Count 6.65 10^3/uL (4.4-10.8) 10/22/24 09:05 Red Blood Count 3.77 10^6/uL (3.93-5.22) L 10/22/24 09:05 Hemoglobin 12.6 g/dL (11.2-15.7) 10/22/24 09:05 Hematocrit 36.8 % (36.0-46.0) 10/22/24 09:05 Platelet Count 288 10^3/uL (130-400) 10/22/24 09:05 Complete Metabolic Panel: 2 Sodium 139 mmol/L (136-145) 10/22/24 09:05 Potassium 4.1 mmol/L (3.5-5.1) 10/22/24 09:05 Chloride 100 mmol/L (98-107) 10/22/24 09:05 Carbon Dioxide 29.7 mmol/L (21.0-32.0) 10/22/24 09:05 BUN 20 mg/dL (7-18) H 10/22/24 09:05 Creatinine 1.2 mg/dL (0.55-1.02) H 10/22/24 09:05 Est GFR (CKD-EPI 2020) 50.86 (mL/min/1.73m2) 10/22/24 09:05 Calcium 9.6 mg/dL (8.5-10.1) 10/22/24 09:05 Glucose 138 mg/dL (74-106) H 10/22/24 09:05 Hemoglobin A1c 6.3 % (4.5-5.7) H 10/15/24 08:54 Liver Function Panel: 2 No Data to Display Coagulation Panel: 2 No Data to Display Cardiac Panel: 2 No Data to Display Arterial Blood Gas: 2 No Data to Display Venous Blood Gas: 2 No Data to Display Pancreas Panel: 2 No Data to Display Thyroid Panel: 2 No Data to Display Infectious Disease: 2 No Data to Display Blood Cultures: 2 No Data to Display Toxicology Panel: 2 No Data to Display Imaging and Studies Imaging and Studies Study information below may be from another EMR and interpreted by another provider. Please see original notes in EMR for more complete details. EKG Summary: Reviewed Echocardiogram Summary: Summary: 1. Left ventricle: The cavity size was normal. There was mild to moderate concentric hypertrophy. Systolic function was normal. The estimated ejection fraction was 60-65%. Wall motion was normal; there were no regional wall motion abnormalities. 2. Aortic valve: Sclerosis without stenosis. 3. Left atrium: The atrium was mildly dilated. 4. Right ventricle: The cavity size was normal. Wall thickness was normal. Systolic function was normal. 5. Pulmonic valve: Peak gradient (S): 4.7mm Hg. Anesthesia Assessment and Plan Anesthesia History Personal History: No History of Anesthesia Complications Family History: No Family History of Anesthesia Complications Exercise Tolerance Exercise Tolerance: Metabolic Equivalents>4 Pertinent Negatives Pertinent Negatives: No Symptoms of GERD, No Major Pulmonary Symptoms or Complaints and No History of CVA/TIA Cardiac & Pulmonary Exam Cardiac Exam: Normal S1/S2 Heart Sounds Pulmonary Exam: Clear Bilateral Breath Sounds Implantable Cardiac Device Does patient have a Pacemaker or an ICD?: No Airway Exam Known Difficult Airway: No Mallampati Class: 4 Mouth Opening: Normal (> 3cm) Thyromental Distance: Greater than 3 cm Neck Range of Motion: Full ROM Neck Circumference: Normal Teeth Condition: Normal Dentition Tooth Numberin 1. Chipped prosthetic ASA Classification ASA Score: ASA 3 Emergency Case?: No NPO Status NPO Status: NPO Clears >2 hours, Solids >8 hours Anesthesia Plan Resuscitation Status: Full Code Anesthesia Technique: Spinal Anesthesia Airway Planned: Natural Airway Pain Management: Surgeon and patient request nerve block Monitors Used: Standard Monitors
--- NOTE | 2024-11-06 07:29 | PDOC.DSDIS_ITS ---
Date of service: 11/06/24 Discharge Plan Disposition Patient Disposition: Home Condition: Good Discharge Details Reason For Visit: Left knee DJD Attending Provider: Yemi Galloway Primary Care Provider: Christopher Mcclain Home Meds and New Rx's Prescriptions: New celecoxib [Celebrex] 200 mg capsule 200 mg PO BID PRNQty: 60 0RF Rx Instructions: Take one tablet twice daily for pain and inflammation aspirin 81 mg tablet,delayed release (DR/EC) 81 mg PO BID 30 Days Qty: 60 0RF acetaminophen 500 mg tablet 1,000 mg PO Q8H PRN Qty: 90 0RF Rx Instructions: Take two tablets up to every 8 hours as needed for pain pantoprazole 40 mg tablet,delayed release (DR/EC) 40 mg PO DAILY Qty: 14 0RF docusate sodium [Colace] 100 mg capsule 100 mg PO BID Qty: 30 0RF gabapentin 300 mg capsule 300 mg PO QHS Qty: 14 0RF Rx Instructions: Take one tablet at bedtime oxycodone 5 mg tablet 5 mg PO Q4H PRNQty: 18 0RF Rx Instructions: Take one tablet up to every 4 hours as needed for severe postoperative pain Continued magnesium oxide 500 mg magnesium tablet 500 mg PO DAILY Qty: 90 4RF cholecalciferol (vitamin D3) [Vitamin D3] 1,000 unit capsule 4,000 unit PO DAILY (DME) blood-glucose meter [FreeStyle Lite Meter] Kit See Dose Instructions .ROUTE .MEDSUPPLY Qty: 1 0RF Dose Instruction: As directed Rx Instructions: As directed amlodipine 10 mg tablet 10 mg PO HS Qty: 90 3RF atorvastatin 20 mg tablet 20 mg PO DAILY Qty: 90 4RF glipizide 10 mg tablet 10 mg PO DAILY Qty: 90 3RF Januvia 100 mg tablet 100 mg PO DAILY Qty: 90 3RF torsemide 20 mg tablet 20 mg PO DAILY Qty: 90 1RF triamcinolone acetonide 0.1 % cream 1 applic topical BID Qty: 30 0RF valsartan 320 mg tablet 320 mg PO DAILY Qty: 90 3RF metformin 500 mg tablet 1,000 mg PO BID Qty: 360 3RF metoprolol succinate 100 mg tablet extended release 24 hr 100 mg PO DAILY Discharge Instructions Additional Instructions: Total Knee Discharge Instructions Activity: The most important activity is to walk and to work on gentle motion (both flexion and extension). You should try to take short walks a few times a day. It is important that when resting you work on keeping the knee straight. Avoid putting a pillow behind the knee as this will encourage flexion. Work on range of motion exercises as provided by Physical Therapy. - Start outpatient physical therapy within 2 weeks. - You should wear the RAMÓN hose on both legs for 2 weeks. You may remove these at night. You may also use any compression sock in place of the RAMÓN hose. - Utilize [employer] to review exercises, see videos on exercises and obtain basic information pertaining to your surgery and your recovery. Dressing: Remove the Osvaldo wrap by 2 days after your surgery and put on the RAMÓN stocking given to you from the hospital. Keep the surgical dressing (underneath the OSVALDO wrap) in place for at least one week. After the first week it may be removed and replaced with light gauze and tape or nothing. The wound and dressing may get wet after 3 days but avoid soaking the dressing or otherwise it will need to be changed. Many people prefer covering the dressing with cling wrap (saran wrap) to minimize it from getting soaked. If it gets wet, just pat dry. If it starts to peel off then it will need to be changed. Medications: - You should take Tylenol and anti-inflammatory Celebrex as your primary pain control medications. If the Celebrex is too expensive or not covered, please call the office for another alternative (Advil/Ibuprofen or Naproxen/Aleve) - You have been prescribed a stronger pain medication Oxycodone for breakthrough pain, take as needed as prescribed. - You have also been prescribed a stomach acid reduction agent Pantoprozole to help reduce stomach acid and reflux. - You have been prescribed Gabapentin to take at night for restlessness and nerve pain. - You will be taking Aspirin 81mg twice a day for DVT prevention unless instructed otherwise. - If you have constipation you should take Colace (which has been prescribed) or Miralax (which is available [id number]). It takes most people 3-4 days to have a bowel movement. Follow-up: 2 weeks If you have any acute concerns or questions, please do not hesitate to contact the office at [phone]. You may contact Dr. Galloway with any questions after hours through the hospital at [phone] or on his cell phone at [phone]. Stand Alone Forms: Anesthesia Discharge Inst., Aprils.Nerve Block Instructions, Katina Chang ([facility]) Referrals: Yemi Galloway MD [ [facility] STAFF PHYSICIAN] - Equipment/Supplies: Walker Activity:: Elevate Remove Dressings/Wound Care:: Do Not Remove Shower/Bathe:: Cover Diet:: As Tolerated Discharge Orders Discharge Orders: Discharge Order (Routine); Ordered 11/06/24 Ordered By: Faby Fajardo
[2024-11-06] MEDS: Gabapentin 300 MG CAP PO (07:50)
[2024-11-06] MEDS: Celecoxib 200 MG CAP 400 MG PO (07:50)
[2024-11-06] MEDS: Acetaminophen 500 MG TAB 1000 MG PO (07:50)
[2024-11-06] MEDS: Lactated Ringers 1,000 ML 80 ML IV (08:34)
--- NOTE | 2024-11-06 09:01 | W.ANESNERVE ---
Nerve Block Single Injection Procedure Date and Time Date Performed: 11/06/24 Procedure Start: 08:59 Location Where Procedure Performed Procedure Location: Day Surgery Unit Reason Performed: Postoperative Analgesia Requesting Provider: Yemi Galloway Timeout Performed Timeout Performed: Yes Monitoring Used ECG, Blood Pressure and SpO2 Sterility Sterility: Hand Hygiene, Surgical Cap, Surgical Mask, Sterile Gloves and Chlorhexidine Sedation Given During Procedure Sedation Given (Indicate Dose Given): Versed IV Dose:: 2 mg Patient Mental Status Patient Mental Status: Sedate with meaningful communication Nerve Block 1st Nerve Block: Laterality: Left Block Type: Adductor Canal Ultrasound Image Saved?: Yes Needle / Catheter Used: 100mm SonoPlex II Local Anesthetic Bolus (Indicate Dose Given): Lidocaine used for local infiltration of skin, Injected in 3-5ml increments after negative blood aspiration and Bupivacaine 0.25% Dose:: 15 ml Additives (Indicate Dose Given): Normal Saline Ultrasound: Sterile probe cover and gel used Nerve Stimulator: Not Used Paresthesia: None Procedure Tolerated: No Complications and Patient tolerated well Procedure Outcome: Successful Performed By: Joey Segovia
[2024-11-06] MEDS: ceFAZolin 3,000 MG in Normal Saline 100 ML 200 MG IV (09:23)
[2024-11-06] MEDS: TRANEXAMIC ACID/SOD. CHL. 1,000 MG/100 ML BAG 600 MG IVPB (09:35)
--- NOTE | 2024-11-06 10:56 | ROE_ITS ---
Operative Note Operative Note PRE-OP DIAGNOSIS: Left Knee Osteoarthritis POST-OP DIAGNOSIS: same PROCEDURE: Left Total Knee Replacement SURGEON: Yemi Galloway ASSISTANT MAINTENANCE MANAGER: Faby Fajardo ANESTHESIA TYPE: Spinal Refer to Anesthesia Record ESTIMATED BLOOD LOSS: 100 PATHOLOGY: none sent TOURNIQUET TIME: 0 COMPLICATIONS: None Patient was transported to: PACU Patient's condition: stable Implants: 1. Depuy Attune Cementless Cruciate Retaining Femoral Component, Size 5 2. Depuy Attune Cementless Fixed Bearing Tibial Component, Size 4 3. Depuy Attune 5x10mm CR/FB Poly 4. Depuy Attune Patellar Component, Size 38 Indications: I have seen Marcia in clinic for symptoms of knee arthritis, confirmed with radiographic findings. She has exhausted nonoperative methods and was having significant limitations in daily function and desired better function and less pain. I discussed the technical details of a knee replacement. I explained the risks of the procedure to include, but not limited to, bleeding, infection, pain, stiffness, fracture, damage to nerves and vessels, damage to muscles and tendons, loosening, need for repeat procedure, blood clot and cardiopulmonary demise. Despite these risks, Marcia elected to proceed. Findings: There was significant signs of arthritis throughout the knee with large osteophytes throughout. Procedure Description: Marcia was greeted in the preoperative holding area where the correct side was identified and marked. The consent was reviewed with the patient and signed. The history and physical was updated. All questions were answered. Preoperative medications were administered: Acetaminophen 1000mg, Celebrex 400mg, and Gabapentin 300mg. An adductor canal block was then administered by the anesthesia team in the D[facility]. She was taken back to the operating room. A spinal anesthestic was then administered. The patient was placed into the supine position on the operating room table. Posts were placed for positioning during the procedure. All bony prominences were well padded. Prophylactic antibiotics in the form of Cefazolin were administered. 1g of Tranxemic Acid was given intravenously within 30 minutes of incision. The left leg was then prepped with Chloraprep and draped in a standard fashion with impervious stockinette. A second prep with Chloraprep was performed prior to application of Iodine impregnated skin protection. A timeout to confirm correct identity, side and site, procedure, allergies, anesthesia, and medical concerns was performed. With the knee in some flexion, a midline incision was made overlying the knee. Full thickness skin flaps were raised once the extensor mechanism was encountered. These were raised medially and laterally. Any bleeding was controlled with electrocautery. Once the extensor mechanism was fully exposed, a medial parapatellar arthrotomy was performed in a flexed position. All bleeding from the arthrotomy and the geniculate arteries was coagulated. A medial subperiosteal peel was performed with electrocautery to the midcoronal plane. Due to the significant varus deformity the entire medial tibial plateau was exposed. The fat pad was removed while keeping the patellar tendon protected. The anterior distal femur synovium was removed for later visualization. The ACL and PCL were resected and the anterior horn of the lateral meniscus was transected. The knee was then flexed with the patella everted. Large osteophytes from the tibia were removed. Large osteophytes from the femur were removed. Using a step drill, and based on preoperative templating, the femoral canal was entered. This was done with a step drill without any difficulty. The intramedullary distal femoral cut guide was inserted, set to a 5 degree valgus cut and 8mm cut thickness. The distal femoral cut guide was then held in position and pinned. With the soft tissues protected, the distal cut was performed. This was passed over a few times to ensure a planar cut. I then turned attention to the tibia. The extramedullary guide was placed onto the leg. The distal aspect was slid medial to adjust for position of center of ankle and stay in line with shaft of the tibia. Approximately 3-5 degrees of posterior slope was kept in the proximal cutting guide. The center of the guide was aligned with the PCL. The stylus was used to assess cut thickness. The medial side, most involved side, was set for a 4mm cut. This was then held in position and pinned into place with 2 additional pins and a cross pin for stability. The medial and lateral collateral ligaments were protected and the cut was performed. With this completed, it was assessed and noted to be of appropriate dimensions. The guide was removed. A spacer block was inserted and the knee was brought into extension. The 8mm spacer block provided full extension, without hyperextension and with stability of both the medial and lateral collateral ligaments was assessed. The pins from the femur and the tibia were then removed. The distal femur was then sized. The anterior stylus was placed onto the lateral ridge of the anterior femur. This indicated a size 5 femur. The external rotation of the guide was adjusted to 3 degrees to match the epicondylar axis, perpendicular to Panola?s line. The 4-in-1 cutting guide was the placed. The posterior medial femur cut was evaluated and appeared of good thickness. The spacer block was inserted underneath the cutting guide and stability was confirmed in 90 degrees of flexion. An matthew wing was used to confirm appropriate position of the anterior cut to avoid notching. This cutting guide was ensured to be flush on the cut surface and then pinned into place with headed pins. While protecting the soft tissues, quad tendon, and collateral ligaments, the anterior and posterior cuts were performed with a saw. The central two pins were removed and the posterior and anterior chamfers were cut next. The notch-cutting guide was placed. This was pinned to lateralize the femoral component as much as possible while keeping it flush on the cut surface. This was then pinned into position. A reciprocating saw was used to make the notch cut. A rasp smoothed the cut surfaces. The medial and lateral menisci were removed. A trial femoral component was then inserted, impacted down to the cut surfaces, and the lug holes were drilled. A provisional trial tibial component was placed and the knee was brought through range of motion. The polyethylene was trialed until there was good flexion and extension with excellent stability to the medial and lateral collaterals. The patella was tracking without thumbs. A size 10mm polyethylene component provided the best range of motion and stability with less than 2mm gapping with medial and lateral stress and full extension without significant hyperextension. The tibial cut surface was fully exposed. The tibia was then sized as a 4. The tibia had been previously marked during trialing to correspond to the center of the tibial component to help with rotation. The trial was aligned to this joni, approximately rotated to the medial 1/3rd of the tibial tubercle. The trial was pinned into place. The tibia was prepared with a reamer and a keel punch and lug holes. The knee was then brought into extension and the patella was measured as 24mm. Using the patellar clamp and cut guide, this was resected to a flat surface with at least 13mm of thickness remaining. The size 38 patella fit the best. This was oriented and then clamped into position. The lugs were drilled. The trial components were removed. The final components were opened on the back table. The periosteal and capsular tissues, especially posteriorly, around the knee were then systematically injected with a periarticular cocktail consisting of 246mg of Ropivacaine, 0.5mg of Epinephrine, 0.08mg of Clonidine, and 30mg of Ketorolac, diluted to 100cc. On the back table, with the implants opened, the cement was mixed. One batch of high viscosity cement was prepared with vacuum assistance. After the cement was ready a small amount was placed on the cut surface of the patella and the patellar button was clamped into position and held. While the cement was hardening, the cementless knee components were placed. Starting with the tibial component, the tibia was subluxed anteriorly and the lug holes of the component were lined up. The tibia was then impacted with an impactor and mallet until the tibial component was in contact with the tibia. The final polyethylene component was inserted. Then, the femoral component was inserted. The lug holes were aligned and the component was impacted into position. The knee was irrigated with Surgiphor Betadine solution. This was allowed to sit in the knee for 3 minutes and then it was irrigated out with saline. After the cement had finally cured, approximately 15min, the clamp was removed from the patella and the knee was taken through range of motion. The patella was tracking with a no-thumbs technique. The capsule was then reapproximated with a No. 1 Vicryl at multiple locations. The capsule was finally closed with a No. 2 Stratafix, barbed suture. The second dosing of 1g TXA was started. Deep tissues were then reapproximated with 0 Vicryl and 2-0 Vicryl. The skin was closed with a running 3-0 Monocryl in a subcuticular fashion. This was reinforced with skin glue. A Mepilex silver dressing was applied along with a [id number] LEIGH wrap. A CryoCuff was applied. Marcia was transferred to the hospital bed without difficulty an suffering no apparent complication. She has a good prognosis. Physical therapy will start today and without restrictions, weight-bearing as tolerated. Aspirin 81mg BID will be used for DVT prophylaxis. Date of Procedure: 11/06/24
--- NOTE | 2024-11-06 13:27 | IN_ITS ---
PT Notes Visit Reasons: Left knee DJD Physical Therapy Day Surgery Initial Evaluation Date: 11/06/2024 Referring Doctor: Faby Fajardo, Dr. Galloway PT Orders: PT CONSULT: Status post Ortho consult Precautions: WBAT left LE,TEDS x 2 weeks Patient Profile/Admitting Diagnosis: Patient is 64-year-old female presenting status post elective left TKA under spinal anesthesia by Dr. Galloway on 11/06/2024. Postop uncomplicated PMHX: Cholestasis, history of tobacco, hypertension nonalcoholic fatty liver disease, positive microalbuminuria, hyperlipidemia, DM type II Social History/Home Situation: Patient lives with 1 level home for steps to enter with 2 rails. Patient independent ADLs independent ambulation without device. Independent meal prep and home management until recently. Has been able to assist with laundry which is in the basement. Patient drives Equipment Owned/DME: Standard walker and wheeled walker Subjective: Patient reports her knee is sore Objective: General Observation: Female presenting semireclined on stretcher with Cryo/Cuff to left knee, present. Mental Status: Alert and oriented x 4 cooperative pleasant, motivated and agreeable to participate in evaluation Pain: 2/10 left knee Vitals: Semireclined BP 158/78, heart rate 80 ROM: Right Upper Extremity: WNL Left Upper Extremity: WNL Right Lower Extremity: WFL Left Lower Extremity: Hip and ankle WFL, knee 0-82 degrees Strength: [] Right Upper Extremity: [] Left Upper Extremity: Globally 5/5 globally 5/5 Right Lower Extremity: Globally 4/5 Left Lower Extremity: Hip flexion: 3 -/5; hip abduction: 3 -/5; hip extension: 3 -/5; knee extension: 3/5; knee flexion: 2+/5 ankle DF: 3/5 ; ankle PF: 3/5: Patient demonstrates quad set with hold x 5 seconds, no lag with SLR in shortened range Sensation: Intact Bed Mobility/Transfers: Supine to sit supervision Sit to stand supervision with cues for hand placement Stand to sit supervision with cues for hand placement Bed to chair supervision with FWW Gait: amb with FWW supervision 150 feet, with step to pattern increase WB through UE to decrease WB on LLE. Pt demonstrates impaired left knee flexion during swing phase, impaired trunk extension during mid stance LLE, early heel off Left Stairs: 4 steps with 2 rails step to pattern with CGA and cues for sequencing and to hold quad/ knee extension LLE as Balance: [] Static Sitting: Normal Dynamic Sitting: Good Static Standing: Good Dynamic Standing: Good- Special Tests: Mobility Limitations Standardized Measure [facility] AM-PAC 6 clicks Basic Mobility Inpatient Short Form: Raw Score:22 CMS Score:20.91% Informed Consent/Education: Patient instructed in purpose of PT consult. Packet containing TKA exercise protocol has been given to patient. present for stair training Treatment [id number] Education and training on initial set of exercises x 10 reps supine and sitting that can be done at home have been completed with patient. Assessment: Patient is a 64-year-old female presents with clinical signs and symptoms consistent with current/admitting diagnoses that have resulted to mobility limitations, gait instability, generalized weakness, and impairment of motor control as demonstrated by the following impairment level findings: 1. Decreased strength to left knee major muscle groups 2. Impaired standing balance 3. Limitation of joint range of motion in left knee 4. pain left knee 5. Impaired functional activity tolerance Impairments are contributing to the following functional limitations: 1. Inability to safely ambulate without assistive device 2. Increase completion time for mobility ADL performance 3. Increased fall risk 4. difficulty performing stairs safely alone Patient is assessed as a moderate complexity based on the following: History: 64-year-old female with impairment level findings, functional limit ations, and past medical history as indicated above Examination: Demonstrable impairment in strength, balance, and mobility level with underlying impairments and functional limitations as documented above Presentation:evolving Decision Making: moderate Goals: N/A. Plan of Care/Treatment Plan: N/A. DISCHARGE RECOMMENDATIONS: Home with HEP until scheduled Outpatient PT appointment TREATMENT CODE/TIME: 42584 x 20 mins, 12040c 13 mins for 1 unit/ [id number] Thank you for the opportunity to participate in the care of this patient. Jessica Gimenez PT [facility]
--- NOTE | 2024-11-06 13:46 | W.ANESPOSTOP ---
Postoperative Evaluation Date, Time and Location Date Performed: 11/06/24 Time Performed: 13:39 Patient Location: Day Surgery Unit Vital Signs Most Recent Imported Vital Signs: Most Recent Vital Signs Temp Pulse Resp BP Pulse Ox 36.4 C L 80 16 158/78 H 95 11/06/24 12:18 11/06/24 12:18 11/06/24 12:18 11/06/24 12:18 11/06/24 12:18 Pain Score Most Recent Pain Score: Most Recent Pain Score Pain Level 4 11/06/24 13:34 Assessment Mental Status: Awake (Alert & Oriented to Patient Baseline) Airway and Respiratory Function: Patent airway with normal (patient baseline) respiratory exam Cardiovascular Function: Hemodynamically Stable Hydration Status: Adequately Hydrated Nausea & Vomiting: No Nausea or Vomiting Pain: Pt. Denies Any Pain Peripheral Nerve Block: Regional nerve block not resolved at time of post operative discharge
== END 2024-11-06 13:56 | disposition home or self-care (01) ==
PROVIDERS: PCP Nurse Practitioner Family; Visit Provider Student in an Organized Health Care Education/Training Program
PROC: (CPT 27447; principal; 2024-11-06 09:15)
DX: M17.12 Unilateral primary osteoarthritis, left knee (principal); G89.18 Other acute postprocedural pain; M25.562 Pain in left knee; I10 Essential (primary) hypertension; E11.9 Type 2 diabetes mellitus without complications; E78.5 Hyperlipidemia, unspecified; Z79.84 Long term (current) use of oral hypoglycemic drugs
CPT/HCPCS: 27447; 64447; 97110; 97162; C1776; J0665; J0690; J1100; J2003; J2250; J2371; J2401; J2405; J2704; J3010

== ENCOUNTER 2024-11-19 15:43 | Outpatient (CLI) | payer MEDICAID, SELFPAY ==
--- NOTE | 2024-11-19 11:00 | DI.RAD_ITS ---
Exam(s) XR KNEE LT 1V XR STANDING ALIGNMENT EXAM: XR STANDING ALIGNMENT CLINICAL HISTORY: 1ST POST OP S/P L TKA. TECHNIQUE: 2D digital imaging was performed. Standing AP views were performed from the pelvis throu gh the ankles. COMPARISON: CR XR STANDING ALIGNMENT from 10/08/2024 CR XR KNEE LT 1V from 11/19/2024 FINDINGS: BONES: No acute fracture is present. No bony destructive lesion is seen. Leg length discrepancy: No significant overall leg length discrepancy. JOINTS: Knees: A left total knee prosthesis has been placed since the previous exam. The alignment a ppears satisfactory. There are mild degenerative changes of the right knee. The ankle joints are unremarkable. The hip joints are unremarkable. SOFT TISSUE: Vascular calcifications. Left lower extremity edema, greatest around the lateral malleo itz. IMPRESSION: Satisfactory alignment of left total knee prosthesis. No significant leg length discrepancy. DATA REPOSITORY: RADIATION DOSE DELIVERED:
== END 2024-11-19 15:44 | disposition home or self-care (01) ==
LOC: DIORS 15:43
PROVIDERS: PCP Nurse Practitioner Family; Visit Provider Student in an Organized Health Care Education/Training Program
DX: Z96.652 Presence of left artificial knee joint (principal); Z47.1 Aftercare following joint replacement surgery
CPT/HCPCS: 73560; 77073

== ENCOUNTER 2025-05-21 03:04 | Outpatient (CLI) | payer MEDICAID, SELFPAY ==
[2025-05-21 10:03] LABS: Abs Immature Grans 0.03 10^3/uL (0.0-0.06); HCT 35.2 % (36.0-46.0); HGB 11.8 g/dL (11.2-15.7); Immature Grans % 0.5 %; MCH 31.6 pg (27.0-33.0); MCHC 33.5 % (32.0-36.0); MCV 94 fL (80-95); MPV 10.1 fL (8.0-11.0); Platelet Count 289 10^3/uL (130-400); RBC 3.73 10^6/uL (3.93-5.22); RDW 14.3 % (11.7-14.6); RDW-SD 49.7 fL; WBC 6.16 10^3/uL (4.4-10.8)
[2025-05-21 11:10] LABS: Iron 76 ug/dL (50-170); Total Iron Binding Capacity 340 ug/dL (250-450)
[2025-05-21 11:36] LABS: ALT 53 U/L (14-59); AST 28 U/L (15-37); Albumin 3.9 g/dL (3.4-5.0); Alkaline Phosphatase 97 U/L (46-116); Anion Gap 11.4 mmol/L (3-11); BUN 13 mg/dL (7-18); Bilirubin, Total 0.5 mg/dL (0.2-1.0); CO2 26.6 mmol/L (21.0-32.0); Calcium 9.4 mg/dL (8.5-10.1); Chloride 97 mmol/L (98-107); Estimated GFR 82.23 (mL/min/1.73m2); Ferritin 189 ng/mL (8-252); Glucose 104 mg/dL (74-106); Potassium 4.0 mmol/L (3.5-5.1); Sodium 135 mmol/L (136-145); TSH (W/Ref FT4) 1.91 uIU/mL (0.36-3.74); Total Protein 7.7 g/dL (6.4-8.2); Vitamin B12 299 pg/mL (193-986)
[2025-05-22 07:19] LABS: Transferrin 266 mg/dL (201-352)
== END 2025-05-21 03:05 | disposition home or self-care (01) ==
LOC: LBO 03:05
PROVIDERS: PCP Nurse Practitioner Family; Visit Provider Nurse Practitioner Family
DX: R23.1 Pallor (principal); R23.2 Flushing; D50.9 Iron deficiency anemia, unspecified
CPT/HCPCS: 36415; 80053; 82607; 82728; 83540; 83550; 84443; 84466; 85025